=== PATIENT | male | born 1950 | race Caucasian/White ===

== ENCOUNTER 2023-12-13 08:06 | Inpatient (IN) ==
[2023-12-13 08:32] LABS: iSTAT Creatinine 0.8 mg/dl (0.6-1.3); iSTAT Hemoglobin 13.6 g/dl (14.0-18.0); iSTAT Ionized Calcium 1.16 mmol/l (1.12-1.32); iSTAT Potassium 3.1 mmol/L (3.3-5.0)
[2023-12-13 08:34] LABS: Basophils # (auto) 0.06 K/uL (0.00-0.20); Basophils % (auto) 0.5 %; Eosinophils # (auto) 0.17 K/uL (0.00-0.50); Eosinophils % (auto) 1.3 %; Hematocrit (blood only) 40.1 % (42.0-52.0); Hemoglobin 12.3 g/dl (14.0-18.0); Immature Granulocytes # (auto) 0.39 K/uL (0.01-0.20); Lymphocytes # (auto) 4.82 K/uL (1.20-3.40); Lymphocytes % (auto) 36.9 %; Mean Corpuscular Hemoglobin 32.3 pg (25.0-34.0); Mean Corpuscular Hgb Conc 30.7 g/dL (32.0-36.0); Mean Corpuscular Volume 105.2 fL (80.0-100.0); Mean Platelet Volume 9.5 fL (9.4-12.4); Monocytes # (auto) 0.97 K/uL (0.11-0.59); Monocytes % (auto) 7.4 %; Neutrophils # (auto) 6.67 K/uL (1.40-6.50); Neutrophils % (auto) 50.9 %; Platelet Count 230 K/uL (130-400); RDW Coefficient of Variation 13.6 % (11.5-14.5); RDW Standard Deviation 52.5 fL (36.4-46.3); Red Blood Count 3.81 M/uL (4.70-6.10); White Blood Count 13.08 K/ul (4.8-10.8)
[2023-12-13] MEDS ORDERED: STAT IV Infusion **Titration per Protocol STA ×2 (08:36→08:37)
--- NOTE | 2023-12-13 08:36 | Emergency Department Note ---
Impression & Plan Cardiac arrest, PEA (Pulseless electrical activity), Acute on chronic hypoxic respiratory failure, Interstitial lung disease, Chronic hypoxic respiratory failure ED Provider Note NAME: KAZ WILD AGE: 73 SEX: M : 1950 ARRIVES VIA: Ambulance INFORMANT: Patient ED PROVIDER(S): Carlos Alicea DO CHIEF COMPLAINT: cardiac arrest HPI: Patient is a 73-year-old male who presents to the ER for cardiac arrest. Some where around 0710 family heard a thud and they went into the room and he was unresponsive. Upon arrival of EMS he was found to be in PEA. He was given 2 of epi and eventually had ROSC. He was a little hypotensive and was given 40 mcg of epi following this by EMS. He was transported for about 20 minutes without any additional intervention as he remained stable. He was given IV fluids. Patient is a full code per EMS. ADDITIONAL HISTORY OBTAINED: Per HPI Chronic Medical/Social Conditions Affecting Care: Per HPI PAST MEDICAL HISTORY:See Below PAST SURGICAL HISTORY:See Below FAMILY HISTORY:See Below SOCIAL HISTORY:See Below HOME MEDICATIONS:See Below ALLERGIES:See Below VITALS:See Below PHYSICAL EXAMINATION: GENERAL: Lying in bed unresponsive with ET tube in place. Pupils are 4 mm and reactive. EYE EXAM: normal conjunctiva. OROPHARYNX: no exudate, no erythema, lips, buccal mucosa, and tongue normal and mucous membranes are moist NECK: supple, no nuchal rigidity, no adenopathy, non-tender LUNGS: Clear to auscultation. Normal chest wall mechanics HEART: no murmurs, S1 normal and S2 normal ABDOMEN: abdomen soft, non-tender, normo-active bowel sounds, no masses, no rebound or guarding. UPPER EXTREMITIES: upper extremities are grossly normal. LOWER EXTREMITIES: No pitting edema. NEURO EXAM: GCS 3 T MEDICAL DECISION MAKING: Patient is a 73-year-old male with a past medical history of interstitial lung disease and chronic respiratory failure on 2 to 4 L nasal cannula who presents to the ER following cardiac arrest. IV was established blood work is obtained. Upon presentation to the ER bedside ultrasound was performed by myself and showed cardiac contractility. IV was established blood work was obtained. Labs showed a mild leukocytosis of 13,000. Mild anemia. ABG with a pH of 7.1 and a CO2 elevated at nearly 80. Patient was intubated in the field. BMP with a hypokalemia at 3.2. Lactate was significantly elevated at 10. Troponin was elevated as well. LFTs and magnesium was unremarkable. Lipase was normal. Pro-Vikram was normal. Chest x-ray with chronic interstitial findings but was covered with IV fluids and IV antibiotics/cefepime. Central line was placed in the left groin by myself. Please see the report below/procedure note. Patient was placed on epinephrine. This was titrated up and down several times. He was also placed on a fentanyl drip. Discussed with the son notes that the patient is a full code at this time. Discussed with the hospitalist as well as Vincent Cohn from the yield improvement engineer service. Please see their notes for further evaluation management. Upon arrival systolic pressures were in the 70s and consequently patient was started on epinephrine and central line was placed. Case was also discussed with Dr. Peraza from the yield improvement engineer service and he agreed with admission to the hospitalist and echo. Consults/Care Managements Discussions: Per [facility] Triage Nursing notes reviewed. Limited review of prior medical records performed Vital Signs: reviewed and remarkable for hypotension Differential diagnosis: Cardiac ischemia, aortic dissection, pulmonary embolism, pneumothorax, pneumonia, pericarditis, myocarditis, esophageal rupture, GERD, cholecystitis, pancreatitis, musculoskeletal, as well as other pathologies. ER treatment provided: See below Diagnostics interpreted by me include EKG and cardiac monitoring as listed below: -Cardiac Monitoring: An order was placed for continuous cardiac monitoring. The monitor shows a rate of 80 with sinus rhythm. -ECG: Sinus rhythm rate 84 Normal axis Right bundle branch block ST depressions in the anterior lateral leads T wave inversions in the inferior leads QTc 465 -Laboratory studies:Interpreted by me as stated above in MDM and shown below. Imaging studies: Xrays: As interpreted by me: Portable AP upright 1 view of the chest shows ET tube about 3 and half centimeters above the rahel CTs show: CT of the head was negative for any acute bleed Procedures:PROCEDURE NOTE - Central Line Insertion - Ultrasound Guided PRIOR TO PROCEDURE: Consent: Discussion was not held with the patient concerning central line. The risks and benefits were not explained with possible risks to include bleeding, pain, pneumothorax, hemothorax, pulmonary contusion, pulmonary laceration, and infection. The was unable to consent and it was done emergently The patient was evaluated prior to the procedure. The patient was identified and the procedure verified as central line insertion. A Time Out was held and the following information confirmed. Verify Correct Patient: Yes Verify Correct Site: Yes Availability of Necessary Equipment: Yes PROCEDURE NOTE: Procedure: Central Line Inserting Clinician: Carlos Alicea DO. Guide-wire was removed, examined and is intact Complication/Corrective Action: None Estimated Blood Loss: 5 mL mls US guided line placement: Yes I have reviewed and educated the patient and or family regarding the benefits and risks of central line insertion, and I have reviewed the potential complications including infection -no CENTRAL LINE BUNDLE: Skin Prep: Chlorhexidine/alcohol Barriers Used: Mask: yes Sterile gown: yes Large sterile drape: yes Cap: yes Sterile gloves: yes Insertion Status: new site Indications - include all that apply: Cardiac arrest, hypotension on pressors Placement Conditions: Emergently Site: Femoral Side: L Number of lumen(s): 3 Length of catheter inserted into patient: 20 centimeters Anesthesia: local Number of Needle Passes: 2 Radiological confirmation: Yes I performed the procedure. Critical Care: I have personally spent 125 minutes of critical care time in the direct management of this patient. This includes bedside care, interpretation of diagnostic studies, and testing, discussion with consultants, patient, and family members, and other required patient management activities. This 125 minutes is in excess of all separately billable procedures. Past Med/Surg History Social History Smoking Status: Unknown if ever smoked Communication Ability: Unable Communication Ability Comment: intubated upon arrival Beliefs That Will Affect Care: None Current Living Situation: Alone Feels Safe at Home: Declines to Answer Allergies Allergies Allergy/AdvReac Type Severity Reaction Status Date / Time No Known Allergies Allergy Unverified 12/13/23 12:46 Results & Data (ED) Vital Signs Vital Signs - 24 hr 12/13/23 08:17 12/13/23 08:21 12/13/23 08:22 Temperature Pulse Rate 82 79 80 Pulse Rate from SpO2 Sensor Respiratory Rate 16 20 Blood Pressure 70/45 L Blood Pressure Mean 53 Pulse Oximetry 100 100 Oxygen Delivery Method Room Air Fraction of Inspired Oxygen 100 Sepsis Recent Fever Within 48 Hours No Sepsis New/Unexplained Change in Mental Status Yes Sepsis Action Taken by Nursing Physician Notified End-Tidal CO2 52 12/13/23 08:30 12/13/23 08:38 12/13/23 08:40 Temperature 31.0 C L Pulse Rate 83 Pulse Rate from SpO2 Sensor 82 Respiratory Rate 22 Blood Pressure 142/94 H Blood Pressure Mean 113 Pulse Oximetry 99 Oxygen Delivery Method Fraction of Inspired Oxygen 50 Sepsis Recent Fever Within 48 Hours Sepsis New/Unexplained Change in Mental Status Sepsis Action Taken by Nursing End-Tidal CO2 47 12/13/23 08:40 12/13/23 08:42 12/13/23 08:42 Temperature 31.6 C L Pulse Rate 84 Pulse Rate from SpO2 Sensor Respiratory Rate 25 H Blood Pressure 97/65 L 115/84 Blood Pressure Mean 72 90 Pulse Oximetry Oxygen Delivery Method Fraction of Inspired Oxygen Sepsis Recent Fever Within 48 Hours Sepsis New/Unexplained Change in Mental Status Sepsis Action Taken by Nursing End-Tidal CO2 42 12/13/23 08:44 12/13/23 08:44 12/13/23 08:45 Temperature 31.9 C L 32.1 C L Pulse Rate 80 77 Pulse Rate from SpO2 Sensor 81 78 Respiratory Rate 21 23 Blood Pressure 112/81 Blood Pressure Mean 96 Pulse Oximetry 97 100 Oxygen Delivery Method Fraction of Inspired Oxygen Sepsis Recent Fever Within 48 Hours Sepsis New/Unexplained Change in Mental Status Sepsis Action Taken by Nursing End-Tidal CO2 41 44 12/13/23 08:46 12/13/23 08:46 12/13/23 08:48 Temperature 32.2 C L Pulse Rate 77 Pulse Rate from SpO2 Sensor 76 Respiratory Rate 27 H Blood Pressure 125/90 130/83 Blood Pressure Mean 96 102 Pulse Oximetry 100 Oxygen Delivery Method Fraction of Inspired Oxygen Sepsis Recent Fever Within 48 Hours Sepsis New/Unexplained Change in Mental Status Sepsis Action Taken by Nursing End-Tidal CO2 42 12/13/23 08:48 12/13/23 08:50 12/13/23 08:50 Temperature 32.5 C L 32.6 C L Pulse Rate 78 75 Pulse Rate from SpO2 Sensor 75 71 Respiratory Rate 23 24 Blood Pressure 128/81 Blood Pressure Mean 89 Pulse Oximetry 100 100 Oxygen Delivery Method Fraction of Inspired Oxygen Sepsis Recent Fever Within 48 Hours Sepsis New/Unexplained Change in Mental Status Sepsis Action Taken by Nursing End-Tidal CO2 44 43 12/13/23 08:52 12/13/23 08:52 12/13/23 08:54 Temperature 32.7 C L Pulse Rate 75 Pulse Rate from SpO2 Sensor 73 Respiratory Rate 28 H Blood Pressure 132/86 117/75 Blood Pressure Mean 108 84 Pulse Oximetry 99 Oxygen Delivery Method Fraction of Inspired Oxygen Sepsis Recent Fever Within 48 Hours Sepsis New/Unexplained Change in Mental Status Sepsis Action Taken by Nursing End-Tidal CO2 40 12/13/23 08:54 12/13/23 08:55 12/13/23 08:56 Temperature 32.8 C L 32.9 C L Pulse Rate 76 76 Pulse Rate from SpO2 Sensor 76 72 Respiratory Rate 26 H 25 H Blood Pressure 127/78 Blood Pressure Mean 98 Pulse Oximetry 99 99 Oxygen Delivery Method Fraction of Inspired Oxygen Sepsis Recent Fever Within 48 Hours Sepsis New/Unexplained Change in Mental Status Sepsis Action Taken by Nursing End-Tidal CO2 40 39 12/13/23 08:56 12/13/23 08:58 12/13/23 08:58 Temperature 32.9 C L 32.9 C L Pulse Rate 74 73 Pulse Rate from SpO2 Sensor 72 75 Respiratory Rate 28 H 28 H Blood Pressure 118/86 Blood Pressure Mean 98 Pulse Oximetry 99 98 Oxygen Delivery Method Fraction of Inspired Oxygen Sepsis Recent Fever Within 48 Hours Sepsis New/Unexplained Change in Mental Status Sepsis Action Taken by Nursing End-Tidal CO2 41 39 12/13/23 09:00 12/13/23 09:00 12/13/23 09:02 Temperature 33.0 C L 33.0 C L Pulse Rate 76 74 Pulse Rate from SpO2 Sensor 72 67 Respiratory Rate 30 H 27 H Blood Pressure 119/77 Blood Pressure Mean 97 Pulse Oximetry 100 99 Oxygen Delivery Method Fraction of Inspired Oxygen Sepsis Recent Fever Within 48 Hours Sepsis New/Unexplained Change in Mental Status Sepsis Action Taken by Nursing End-Tidal CO2 39 40 12/13/23 09:02 12/13/23 09:04 12/13/23 09:04 Temperature 33.0 C L Pulse Rate 74 Pulse Rate from SpO2 Sensor 71 Respiratory Rate 26 H Blood Pressure 112/75 120/77 Blood Pressure Mean 85 80 Pulse Oximetry 99 Oxygen Delivery Method Fraction of Inspired Oxygen Sepsis Recent Fever Within 48 Hours Sepsis New/Unexplained Change in Mental Status Sepsis Action Taken by Nursing End-Tidal CO2 36 12/13/23 09:05 12/13/23 09:06 12/13/23 09:06 Temperature 33.0 C L 33.0 C L Pulse Rate 72 70 Pulse Rate from SpO2 Sensor 70 71 Respiratory Rate 15 26 H Blood Pressure 106/74 Blood Pressure Mean 88 Pulse Oximetry 100 99 Oxygen Delivery Method Fraction of Inspired Oxygen Sepsis Recent Fever Within 48 Hours Sepsis New/Unexplained Change in Mental Status Sepsis Action Taken by Nursing End-Tidal CO2 39 38 12/13/23 09:08 12/13/23 09:08 12/13/23 09:10 Temperature 32.9 C L Pulse Rate 74 Pulse Rate from SpO2 Sensor 75 Respiratory Rate 23 Blood Pressure 107/75 104/75 Blood Pressure Mean 79 88 Pulse Oximetry 97 Oxygen Delivery Method Fraction of Inspired Oxygen Sepsis Recent Fever Within 48 Hours Sepsis New/Unexplained Change in Mental Status Sepsis Action Taken by Nursing End-Tidal CO2 36 12/13/23 09:10 12/13/23 09:12 12/13/23 09:12 Temperature 32.9 C L 32.9 C L Pulse Rate 72 73 Pulse Rate from SpO2 Sensor 72 71 Respiratory Rate 20 22 Blood Pressure 104/70 Blood Pressure Mean 76 Pulse Oximetry 98 98 Oxygen Delivery Method Fraction of Inspired Oxygen Sepsis Recent Fever Within 48 Hours Sepsis New/Unexplained Change in Mental Status Sepsis Action Taken by Nursing End-Tidal CO2 38 36 12/13/23 09:14 12/13/23 09:14 12/13/23 09:15 Temperature 32.9 C L 32.9 C L Pulse Rate 79 74 Pulse Rate from SpO2 Sensor 71 69 Respiratory Rate 21 22 Blood Pressure 110/72 Blood Pressure Mean 80 Pulse Oximetry 95 92 Oxygen Delivery Method Fraction of Inspired Oxygen Sepsis Recent Fever Within 48 Hours Sepsis New/Unexplained Change in Mental Status Sepsis Action Taken by Nursing End-Tidal CO2 46 38 12/13/23 09:16 12/13/23 09:16 12/13/23 09:18 Temperature 32.8 C L 32.8 C L Pulse Rate 71 73 Pulse Rate from SpO2 Sensor 74 Respiratory Rate 22 22 Blood Pressure 95/75 L Blood Pressure Mean 84 Pulse Oximetry 100 Oxygen Delivery Method Fraction of Inspired Oxygen Sepsis Recent Fever Within 48 Hours Sepsis New/Unexplained Change in Mental Status Sepsis Action Taken by Nursing End-Tidal CO2 39 40 12/13/23 09:18 12/13/23 09:20 12/13/23 09:25 Temperature 32.8 C L 32.7 C L Pulse Rate 71 78 Pulse Rate from SpO2 Sensor 75 Respiratory Rate 21 22 Blood Pressure 107/67 Blood Pressure Mean 72 Pulse Oximetry 87 L 99 Oxygen Delivery Method Fraction of Inspired Oxygen Sepsis Recent Fever Within 48 Hours Sepsis New/Unexplained Change in Mental Status Sepsis Action Taken by Nursing End-Tidal CO2 41 36 12/13/23 09:30 12/13/23 09:35 12/13/23 09:40 Temperature 32.6 C L 32.5 C L 32.3 C L Pulse Rate 72 72 70 Pulse Rate from SpO2 Sensor 76 70 69 Respiratory Rate 20 20 20 Blood Pressure Blood Pressure Mean Pulse Oximetry 98 97 97 Oxygen Delivery Method Fraction of Inspired Oxygen Sepsis Recent Fever Within 48 Hours Sepsis New/Unexplained Change in Mental Status Sepsis Action Taken by Nursing End-Tidal CO2 41 41 43 Laboratory Data 12/13/23 12:34 12/13/23 08:20 Lab Results 12/13/23 12/13/23 Range/Units 08:19 08:20 WBC 13.08 H (4.8-10.8) K/ul RBC 3.81 L (4.70-6.10) M/uL Hgb 12.3 L (14.0-18.0) g/dl POC Hgb 13.6 L (14.0-18.0) g/dl Hct 40.1 L (42.0-52.0) % POC Hct 40 L (42-52) % MCV 105.2 H (80.0-100.0) fL MCH 32.3 (25.0-34.0) pg MCHC 30.7 L (32.0-36.0) g/dL RDW Std Deviation 52.5 H (36.4-46.3) fL RDW Coeff of Jeny 13.6 (11.5-14.5) % Plt Count 230 (130-400) K/uL MPV 9.5 (9.4-12.4) fL Immature Gran % (Auto) 3.0 % Neut % (Auto) 50.9 % Lymph % (Auto) 36.9 % Cowley % (Auto) 7.4 % Eos % (Auto) 1.3 % Baso % (Auto) 0.5 % Neut # (Auto) 6.67 H (1.40-6.50) K/uL Lymph # (Auto) 4.82 H (1.20-3.40) K/uL Cowley # (Auto) 0.97 H (0.11-0.59) K/uL Eos # (Auto) 0.17 (0.00-0.50) K/uL Baso # (Auto) 0.06 (0.00-0.20) K/uL Immature Gran # (Auto) 0.39 H (0.01-0.20) K/uL POC Sodium 135 (135-144) mmol/L Sodium 136 (136-145) mmol/L POC Potassium 3.1 L (3.3-5.0) mmol/L Potassium 3.2 L (3.5-5.1) mmol/L POC Chloride 88 L (101-112) mmol/L Chloride 91 L (98-107) mmol/L Carbon Dioxide 31 (21-32) mmol/L POC Total CO2 33 H (24-31) mmol/L Anion Gap 14 H (3-11) POC Anion Gap 17.0 (16-25) mmol/L POC BUN 14 (7-18) mg/dl BUN 15 (6-23) mg/dl Creatinine 0.84 (0.6-1.4) mg/dl POC Creatinine 0.8 (0.6-1.3) mg/dl Est Cr Clr Drug Dosing 59.6 ml/min Est GFR ( Amer) 101.4 ml/min Est GFR (Non-Af Amer) 87.5 ml/min BUN/Creatinine Ratio 17.9 (10-20) Glucose 163 H (70-99(Fasting)) mg/dl POC Glucose (other) 161 H (70-99) mg/dl Lactate 10.9 H* (0.4-2.0) mmol/L Calcium 9.7 (8.6-10.3) mg/dl POC Ioniz Calcium Iker 1.16 (1.12-1.32) mmol/l Magnesium 2.4 (1.7-2.4) mg/dl Total Bilirubin 0.5 (0.2-1.0) mg/dl AST 92 H (13-39) U/L ALT 42 (7-52) U/L Alkaline Phosphatase 79 (34-104) U/L Troponin I High Sens 40.5 H (0-20) pg/ml Total Protein 7.0 (6.0-8.3) gm/dl Albumin 3.6 (3.4-5.0) gm/dl Globulin 3.4 (2.5-4.0) gm/dl Albumin/Globulin Ratio 1.1 (0.9-2) Lipase 67 (11-82) U/L Procalcitonin < 0.05 (0-0.5) ng/ml Administered Medications Epinephrine HCl () 4 mg in 254 mls @ 4.039 mls/hr IV .Q24H RAPHAEL; Protocol Stop: 01/12/24 08:44 Last Titration: 12/13/23 11:57 Dose: 0.1 mcg/kg/min, 20.2 mls/hr Documented By: Titration: 12/13/23 11:26 Dose: 0.2 mcg/kg/min, 40.4 mls/hr Documented By: KAE Co-signed By: JS Admin: 12/13/23 08:43 Dose: 0.03 mcg/kg/min, 6.1 mls/hr Documented By: VIAK Co-signed By: KALEY Fentanyl Citrate (Fentanyl Citrate) 2,500 mcg in 250 mls @ 5 mls/hr IV .Q50H RAPHAEL; Protocol Stop: 12/27/23 08:44 Last Titration: 12/13/23 11:58 Dose: 50 mcg/hr, 5 mls/hr Documented By: KAE Co-signed By: JS Titration: 12/13/23 11:40 Dose: 25 mcg/hr, 2.5 mls/hr Documented By: KAE Co-signed By: JS Titration: 12/13/23 11:26 Dose: 0 mcg/hr, 0 mls/hr Documented By: KAE Co-signed By: JS Titration: 12/13/23 09:15 Dose: 50 mcg/hr, 5 mls/hr Documented By: VIKA Co-signed By: HS Admin: 12/13/23 08:45 Dose: 25 mcg/hr, 2.5 mls/hr Documented By: MWLance Co-signed By: KALEY Parenteral Electrolytes (Plasma-Lyte A Ph 7.4) 1,000 mls @ 100 mls/hr IV .Q10H RAPHALE Stop: 01/12/24 11:59 Last Admin: 12/13/23 12:48 Dose: 100 mls/hr Documented By: JS Discontinued Medications Fentanyl Citrate (Fentanyl Citrate 2,500 Mcg/250 Ml Bag) Confirm Administered Dose 2,500 mcg IV .STK-MED ONE Stop: 12/13/23 08:29 Last Admin: 12/13/23 08:49 Dose: Not Given Documented By: VIKA Sodium Chloride (Nss) 1,000 mls @ 999 mls/hr IV .Q1H1M ONE Stop: 12/13/23 09:37 Last Infusion: 12/13/23 11:27 Dose: Infused Documented By: Admin: 12/13/23 08:44 Dose: 999 mls/hr Documented By: VIKA Cefepime HCl (Maxipime) 2,000 mg in 20 mls @ 5 mls/min IV NOW STA; Protocol Stop: 12/13/23 08:52 Last Admin: 12/13/23 09:18 Dose: 5 mls/min Documented By: VIKA Potassium Chloride (K Clifton / Wtr) 10 meq in 100 mls @ 100 mls/hr IV Q1H RAPHAEL Stop: 12/13/23 10:59 Last Infusion: 12/13/23 12:21 Dose: Infused Documented By: Admin: 12/13/23 11:25 Dose: 100 mls/hr Documented By: Infusion: 12/13/23 10:18 Dose: Infused Documented By: Admin: 12/13/23 09:18 Dose: 100 mls/hr Documented By: VIKA Influenza Virus Vaccine (Influenza Vaccine High-Dose (Hd-Iiv4) Pf 65+ 0.7ml Syr) 0.7 ml IM .ONCE ONE Stop: 12/13/23 12:42 Last Admin: 12/13/23 13:09 Dose: Not Given Documented By: JS Miscellaneous Information (Patient's Allergy Info Needs Entered) 1 each N/A NOW STA Stop: 12/13/23 12:20 Last Admin: 12/13/23 12:46 Dose: 1 each Documented By: JS Pneumococcal 20-Valent Conj Vacc (Pneumococcal Vaccine (Pcv20) 20-Judy Conj-Dip Crm/Pf 0.5 Ml Syr) 0.5 ml IM .ONCE ONE Stop: 12/13/23 12:42 Last Admin: 12/13/23 13:09 Dose: Not Given Documented By: JS Imaging Data Radiologist's Impression: Chest X-Ray 12/13/23 08:04 XR chest 1V portable HISTORY: Atypical chest pain. COMPARISON: None. FINDINGS: The endotracheal tube terminates 4 cm from the rahel. No pneumothorax. No pleural effusions. The heart is normal in size. There is diffuse interstitial thickening with patchy scattered hazy airspace opacities within the lungs. The esophagus is mildly distended with gas. There is also gaseous distention of the stomach and visualized loops of bowel within the upper abdomen. IMPRESSION: 1. The esophagus is mildly distended with gas and there is gaseous distention of the stomach and visualized loops of bowel within the upper abdomen. The endotracheal tube is likely within the trachea. However, clinical correlation recommended to exclude the possibility of an esophageal intubation. 2. Diffuse interstitial thickening with patchy bilateral airspace opacities. This could represent chronic interstitial change. A superimposed pneumonitis would be difficult to exclude given the lack of prior studies. ACT 112: Negative or not required by law. Electronically signed by: Po Wilkerson M.D. 12/13/2023 8:[address] 12/13/23 08:[address] DOSE: HISTORY: syncope TECHNIQUE: Multiaxial CT images of the head were performed without the use of intravenous contrast. Automated exposure control was utilized for this study. A dose lowering technique was utilized adhering to the principles of ALARA. Comparison: None. Findings: The paranasal sinuses and mastoid air cells are clear. The calvarium and skull base are intact. The ventricles and sulci are within normal limits. There is no mass, hematoma, midline shift, acute infarct. Patchy periarticular white matter hypodensity is nonspecific but favors mild microvascular ischemic change given the patient's age. Impression: No acute infarct or intracranial hemorrhage. ACT 112: Negative or not required by law. Electronically signed by: Po Wilkerson M.D. 12/13/2023 10:58 AM KUB X-Ray 12/13/23 08:56 KUB HISTORY: Nasogastric tube placement. COMPARISON: None. FINDINGS: The nasogastric tube terminates at the gastric cardia with the fenestrated line at the distal esophagus. This should be advanced by approximately 5 to 10 cm. Gaseous distention of the stomach and bowel within the right upper quadrant is partially visualized on this study. There is interstitial thickening again noted at the lung bases. No renal calculi. No ureteral calculi. Abnormal appearance of the bowel within the right midabdomen is likely due to the distended bowel loops. Pneumoperitoneum is considered less likely . IMPRESSION: 1. Abnormal appearance of the bowel within the right midabdomen is likely due to the distended bowel loops. Pneumoperitoneum is considered less likely. Of note, there is no evidence for pneumoperitoneum on the same day chest CT.. 2. Nasogastric tube terminates at the gastric cardia with the fenestrated line at the distal esophagus. This should be advanced by approximately 5 to 10 cm. 3. Gaseous distention of the stomach and bowel right upper quadrant which is partially visualized on this study. ACT 112: Negative or not required by law. Electronically signed by: Po Wilkerson M.D. 12/13/2023 10:[address] 12/13/23 09:06 CT chest diagnostic wo con CT DOSE: 767.27 mGy.cm CLINICAL HISTORY: 73 years-old Male with arrest, ?h/o pulmonary fibrosis. Acute respiratory failure in a patient with possible pulmonary fibrosis TECHNIQUE: Multiaxial CT images of the chest were performed without contrast. A dose lowering technique was utilized adhering to the principles of ALARA. COMPARISON: Chest radiograph of same day FINDINGS: Unremarkable thyroid. Borderline enlarged mediastinal lymph nodes include a 2.2 x 1.2 cm subcarinal lymph node and paratracheal lymph nodes measuring up to 10 mm in short axis. The heart is normal in size. No large pericardial effusion. Extensive coronary artery calcifications. Atherosclerosis of the thoracic aorta without aneurysm. Endotracheal is present within the trachea, 3.4 cm superior to the rahel. Moderate pneumomediastinum. No pneumothorax or large pleural effusion. Pulmonary fibrosis with multilobar distribution of traction bronchiectasis, subpleural reticulation with intermixed groundglass opacities. There is bibasilar honeycombing. A suture line within the superior segment right lower lobe is suggestive of a prior wedge resection. No lobar space consolidation typical for pneumonia. There is intralobular septal thickening. Calcified granuloma in the lateral basal segment left lower lobe. Tracheobronchial secretions. Gaseous distention of the stomach. No esophageal wall thickening however the aforementioned pneumomediastinum does track along the distal esophagus. There is no free air. Mildly distended gallbladder with borderline wall thickening. Pancreatic parenchymal calcifications suggestive of chronic pancreatitis. Unremarkable soft tissues. Anteromedial rib cortical angulation/disruption involves the right second through sixth ribs and the left second through sixth ribs. The vertebral bodies appear intact. IMPRESSION: 1. Satisfactory positioning of the endotracheal tube. Tracheobronchial secretions are noted along with moderate pneumomediastinum. 2. Chronic interstitial lung disease with fibrosis, diffuse bronchiectasis with bibasilar predominant honeycombing suggestive of UIP. 3. Mild mediastinal and hilar lymphadenopathy may be related to the chronic interstitial lung disease. 4. Bilateral anterior second through sixth rib fractures appear to be acute or subacute without significant displacement. No pneumothorax. 5. Equivocal wall thickening of the gallbladder could be correlated with ultrasound. 6. No pleural effusion or airspace consolidation typical for pneumonia. ACT 112: Negative or not required by law. Electronically signed by: Chad Victoria M.D. 12/13/2023 11:05 AM Discharge Plan Visit Data Chief Complaint: Cardiac Arrest/CPR ED Provider: Carlos Alicea Discharge Problem: Cardiac arrest, PEA (Pulseless electrical activity), Acute on chronic hypoxic respiratory failure, Interstitial lung disease, Chronic hypoxic respiratory failure Patient Disposition: Admitted As Inpatient Discharge Instructions Interventions: ED Discharge Assessment Last Done: 12/13/23 10:45
[2023-12-13] MEDS ORDERED: fentaNYL citrate PF 100 MCG/2 ML VIAL IV PRN (08:37)
[2023-12-13] MEDS: EPINEPHrine/NSS 4 MG/254 ML BAG IV SCH (08:43)
[2023-12-13] MEDS: SODIUM CHLORIDE 0.9% 1,000 ML IV ONE (08:44)
[2023-12-13] MEDS: fentaNYL citrate 2,500 MCG/250 ML BAG IV SCH (08:45)
[2023-12-13] MEDS: fentaNYL citrate 2,500 MCG/250 ML BAG IV ONE (08:49)
[2023-12-13 08:57] LABS: Albumin Globulin Ratio 1.1 (0.9-2); Albumin Level 3.6 gm/dl (3.4-5.0); BUN Creatinine Ratio 17.9 (10-20); Bilirubin,Total 0.5 mg/dl (0.2-1.0); Calcium 9.7 mg/dl (8.6-10.3); Creatinine Clr Calc Pharmacy 59.6 ml/min; Est GFR (African American) 101.4 ml/min; Est GFR (Non-African American) 87.5 ml/min; Globulin 3.4 gm/dl (2.5-4.0); Potassium 3.2 mmol/L (3.5-5.1)
--- NOTE | 2023-12-13 09:00 | XRay Report ---
XR chest 1V portable HISTORY: Atypical chest pain. COMPARISON: None. FINDINGS: The endotracheal tube terminates 4 cm from the rahel. No pneumothorax. No pleural effusion s. The heart is normal in size. There is diffuse interstitial thickening with patchy scattered hazy a irspace opacities within the lungs. The esophagus is mildly distended with gas. There is also gaseous distention of the stomach and visualized loops of bowel within the upper abdomen. IMPRESSION: 1. The esophagus is mildly distended with gas and there is gaseous distention of the stomach and visu alized loops of bowel within the upper abdomen. The endotracheal tube is likely within the trachea. H owever, clinical correlation recommended to exclude the possibility of an esophageal intubation. 2. Diffuse interstitial thickening with patchy bilateral airspace opacities. This could represent chr onic interstitial change. A superimposed pneumonitis would be difficult to exclude given the lack of prior studies. ACT 112: Negative or not required by law. Electronically signed by: Po Wilkerson M.D. 12/13/2023 8:58 AM
[2023-12-13 09:01] LABS: Troponin I High Sensitivity 40.5 pg/ml (0-20)
[2023-12-13] MEDS: CEFEPIME 2,000 MG/20 ML VIAL IV STA (09:18)
[2023-12-13] MEDS: POTASSIUM CHLORIDE / WTR 10 MEQ/100 ML PLCT IV SCH (09:18)
[2023-12-13 09:47] LABS: Magnesium 2.4 mg/dl (1.7-2.4)
--- NOTE | 2023-12-13 09:48 | History & Physical Report ---
Date of Service December 13, 2023 Assessment & Plan (1) Cardiac arrest: Plan: Cardiac arrest in a 73 yo male with fixed pupils, lack of gag reflex, not responsive to painful stimuli. Patient with history of pulmonary fibrosis with baseline hypoxemia. Anoxic brain injury appears very likely with above signs. will obtain neuro imaging vent per ICU team. (2) Acute on chronic hypoxic respiratory failure: Plan: as above (3) Severe protein-calorie malnutrition: Plan: BMI is 15. History of Present Illness Chief Complaint: pulseless. Primary Care Provider: NO PCP 73 yo male with a history of interstitial pulmonary disease, chronic respiratory failure, and chronic diarrhea presents to the ED after suffering a cardiac arrest. The patient is currently intubated. The chart review shows that the patient was at his baseline in regards to his health when he had diarrhea with incontinence. The son heard a thud and found the patient unresponsive on the floor. EMS was called. The patient was found to be in PEA, and was intubated on the field. Allergies Allergy/AdvReac Type Severity Reaction Status Date / Time No Known Allergies Allergy Unverified 12/13/23 12:46 Past Med/Surg History Social History Smoking Status: Unknown if ever smoked Communication Ability: Unable Communication Ability Comment: intubated upon arrival Beliefs That Will Affect Care: Spiritual Current Living Situation: Alone Feels Safe at Home: Declines to Answer Assistive Devices: None Review of Systems Review of Systems: Unobtainable due to cognitive status Physical Exam Physical Exam: GENERAL - A frail male who appears stated age is intubated and sedated. SKIN - Without rashes HEENT - NC/AT. Pupils fixed and equal bilaterally. Normal upon external inspection. no trauma, or abrasions LUNGS - Coarse breath sounds bilaterally. CARDIAC - RRR with S1/S2. ABDOMEN - Abdominal contour scaphoid without pulsations or visible masses. EXTREMITIES - Frail appearing. Unable to assess strength. NEUROLOGIC - Pupils fixed and equal bilaterally. No response to painful stimuli. Minimal gag reflex. Occasional myoclonic jerking movements. Results & Data Results & Data Vital Signs (Past 12 Hours) Vital Signs Temp Pulse Resp BP Pulse Ox O2 Del Method FiO2 12/13/23 09:40 32.3 C L 70 20 97 12/13/23 09:35 32.5 C L 72 20 97 12/13/23 09:30 32.6 C L 72 20 98 12/13/23 09:25 32.7 C L 78 22 99 12/13/23 09:20 32.8 C L 71 21 87 L 12/13/23 09:18 107/67 12/13/23 09:18 32.8 C L 73 22 12/13/23 09:16 95/75 L 12/13/23 09:16 32.8 C L 71 22 100 12/13/23 09:15 32.9 C L 74 22 92 12/13/23 09:14 110/72 12/13/23 09:14 32.9 C L 79 21 95 12/13/23 09:12 104/70 12/13/23 09:12 32.9 C L 73 22 98 12/13/23 09:10 32.9 C L 72 20 98 12/13/23 09:10 104/75 12/13/23 09:08 107/75 12/13/23 09:08 32.9 C L 74 23 97 12/13/23 09:06 33.0 C L 70 26 H 99 12/13/23 09:06 106/74 12/13/23 09:05 33.0 C L 72 15 100 12/13/23 09:04 33.0 C L 74 26 H 99 12/13/23 09:04 120/77 12/13/23 09:02 112/75 12/13/23 09:02 33.0 C L 74 27 H 99 12/13/23 09:00 119/77 12/13/23 09:00 33.0 C L 76 30 H 100 12/13/23 08:58 118/86 12/13/23 08:58 32.9 C L 73 28 H 98 12/13/23 08:56 32.9 C L 74 28 H 99 12/13/23 08:56 127/78 12/13/23 08:55 32.9 C L 76 25 H 99 12/13/23 08:54 32.8 C L 76 26 H 99 12/13/23 08:54 117/75 12/13/23 08:52 132/86 12/13/23 08:52 32.7 C L 75 28 H 99 12/13/23 08:50 32.6 C L 75 24 100 12/13/23 08:50 128/81 12/13/23 08:48 32.5 C L 78 23 100 12/13/23 08:48 130/83 12/13/23 08:46 32.2 C L 77 27 H 100 12/13/23 08:46 125/90 12/13/23 08:45 32.1 C L 77 23 100 12/13/23 08:44 31.9 C L 80 21 97 12/13/23 08:44 112/81 12/13/23 08:42 31.6 C L 84 25 H 12/13/23 08:42 115/84 12/13/23 08:40 97/65 L 12/13/23 08:40 31.0 C L 83 22 99 12/13/23 08:38 142/94 H 12/13/23 08:30 50 12/13/23 08:22 80 20 100 100 12/13/23 08:21 79 16 70/45 L 100 Room Air 12/13/23 08:17 82 Code Status & VTE Plan VTE Prophylaxis Plan VTE Prophylaxis will be ordered: Yes PG Care Time/CCT Total # of Minutes Spent Total Time Spent with Patient: Total time spent is greater than 50% in coordination of care (as documented) at patient's floor/unit and/or counseling patient: Coding Level of Care Code 17831 INT INP/OBS CARE 3/75MIN Diagnoses Cardiac arrest I46.9 Acute on chronic hypoxic respiratory failure J96.21 Severe protein-calorie malnutrition E43
--- NOTE | 2023-12-13 10:15 | Critical Care Consultation ---
Date of Consultation December 13, 2023 Assessment & Plan (1) Cardiac arrest: (2) PEA (Pulseless electrical activity): (3) Acute on chronic hypoxic respiratory failure: (4) Interstitial lung disease: (5) Chronic hypoxic respiratory failure: (6) Severe protein-calorie malnutrition: (7) Diarrhea: Plan Reason Critically Ill: 73-year-old male presenting after outside hospital cardiac arrest. Patient with initial PEA rhythm noted upon arrival of EMS. NEURO - * CAM ICU: Unable to assess. * Status post PEA Arrest: * Patient is status post PEA arrest with downtime approximately 8 to 15 minutes with return of spontaneous circulation. Unfortunately, patient is with baseline hypoxemia in the setting of pulmonary fibrosis. He utilizes 3 L nasal cannula at all time. When the patient was found by his son, he was without oxygen in place. This makes anoxic injury and severity of injury much greater on the differential. Patient is not responding to painful stimuli. Minimal gag reflex. He is with myoclonic jerking already. * Will obtain CT of the head/brain to evaluate for injury suggestive of anoxic injury. * May benefit from MRI once stabilized to evaluate degree of anoxia. * Currently requiring fentanyl per ED initial evaluation. * Consideration for midazolam if he is to have worsening myoclonic jerking. * Close monitoring for development of seizure activity in the likely anoxic patient. * Would benefit from early EEG evaluation. * Continue to monitor mental status/neurostatus closely in the first 24-48 hours. CARDIAC/VASCULAR - * Outside hospital PEA Arrest with ROSC: * Patient found down by son. Resuscitation efforts were initiated by EMS upon arrival. The patient was found to be in PEA. He received 2 rounds of epinephrine and high-quality CPR. He was intubated in the field. Return of spontaneous circulation outside the hospital. Downtime estimated between 8 and 15 minutes per conversation with parties involved. * Patient currently requiring vasopressor support in the form of epinephrine. * Will continue with postarrest protocol. * Patient already hypothermic upon arrival. Would not initiate hypothermia protocol as this is likely representing a respiratory arrest in a patient with chronic hypoxemia. The patient would benefit from normothermia moving forward. * Case had been reviewed with interventional is prior to arrival in the ICU which did not not feel as though intervention was necessary at this time. * Will continue to monitor for any dysrhythmia or rhythm changes in the critically ill patient. * Monitor on telemetry. RESPIRATORY - * Acute on chronic hypoxic respiratory failure: * Status post PEA arrest. * Patient's story is concerning for respiratory arrest resulting in cardiac arrest secondary to his baseline hypoxia and patient being found without oxygen in place. Review of his chest x-ray shows infiltrative findings consistent with interstitial lung changes. * Will order CT chest to evaluate the extent of documented interstitial lung disease as we have no records at our institution. * Will need to reach out to the [facility] for their records regarding his current treatment. * Fortunately, I am concerned given the patient's baseline pulmonary status and arrest that the patient's condition may represent nonrecoverable scenario. * Patient presenting with respiratory acidosis. Will assess with ABGs and make ventilator changes as needed. GI/NUTRITION - * Isolated elevation of AST. * Will have conversation with the son regarding alcohol use? * Chronic diarrhea: * Patient with reported chronic diarrheal illness. * Prophylaxis: Famotidine RENAL/LYTES - * Hypokalemia: * Possibly secondary to GI losses with reported history of ongoing diarrheal issues. * Replace potassium to keep >4 in a patient with recent arrest at risk for dysrhythmia. * IVF: Normosol R @ 100mL/hr - * Umanzor in place - Strict I&Os. ENDO - * Unknown h/o DM or Thyroid Dz * BSGs per unit protocol. ISS --> gtt per unit policy. HEME - * Stable H&H ID - * Less likely infectious cause in a patient who had been without issues until this AM per conversation with son. * WBC elevation likely 2/2 stress response. * Lactate >10 in the setting of hypoperfusion - trending down now. * PCT within normal limits. * Received Cefepime in the ED. * Uncertain the utility of antibiotics otherwise. LINES/IV ACCESS - * PIVs x2 * ETT * LEFT Groin CVL * Umanzor DVT PROPHYLAXIS - * Heparin * SCDs CODE STATUS - * I had an extensive conversation with the patient's son in the waiting area of the part of the emergency department. He reports that his father had been doing well up until this morning. We did review goals of care and he reports that over the last few months he had been having discussions about end-of-life wishes, but had not done anything definitively. He feels as though his father would have wanted to undergo everything up to and including his current treatment plan. I did explain to him that in the event that his heart were to stop beating again, that this is likely a nonsurvivable state and certainly his baseline chronic respiratory failure, home oxygen requirement, and interstitial lung disease would only make survivability worse and clinical outcome poor. He acknowledges this and is uncertain if he would wish to proceed with more aggressive measures at this time. We will review CODE STATUS moving forward. I have personally spent 80 minutes of critical care time in the direct management of this patient. This is a life/limb threatening event. This includes time spent evaluating patient, direct bedside care, chart review, placing orders, interpretation of diagnostic studies, discussion with consultants, patient, and family members, as well as other required patient management activities. This time is exclusive of all separately billable procedures, and teaching time and separate from and in addition to any other critical care service time. Thank you for allowing us to participate in the care of this patient. Please refer to my attending physician's documentation for any further recommendations. Supervising Physician Co-Signing Physician Notes Patient seen and examined. EMR reviewed. Discussed with critical care RONNY as well as with the son. Agree with assessment plan as noted by the critical care RONNY. The patient has severe baseline fibrotic lung disease. [facility] with [facility] however radiographically this appears to be advanced and appears the patient was on pirfenidone in the outpatient setting. His PEA arrest may have been precipitated by lack of oxygen but regardless his downtime was significant and there is a significant probability of some degree of anoxic brain injury. Will continue to reassess over the next 12 to 24 hours. The son is aware that should the patient clinically deteriorate this would portend a poor outcome. In that setting the son has chosen to not pursue escalation of care and the patient will be made DO NOT RESUSCITATE. If he fails to show any significant improvement over the next 12 to 24 hours, consideration for transition to a comfort care approach might be reasonable given the patient's underlying medical conditions, poor nutritional status, and severe fibrotic lung disease. Tracheostomy and PEG tube would not be pursued. History of Present Illness Reason for Consultation: Cardiac/Respiratory Arrest Requesting Physician: Dr. Vivas History of Present Illness Patient is a 73-year-old male with a history significant for interstitial pulmonary disease, chronic respiratory failure with hypoxia on 3 L nasal cannula at all times, and chronic diarrhea per conversation with the patient's son who presented to the emergency department after cardiac arrest. The son reports the patient had been enjoying his typical state of health and had had no issues other than ongoing episodes of diarrhea with occasional episodes of soiling himself. He states that he heard a thud upstairs and found the patient on the ground unresponsive. EMS was contacted. Patient was found to be in PEA upon EMS arrival. The patient received 2 rounds of epinephrine followed by ROSC. Patient was intubated in the field. Patient was initiated on epinephrine and fentanyl upon arrival in the emergency department. LEFT CVL was placed. CT head pending. Currently, they are not significant records from our institution for recent visits for the patient. [facility] The son is present at bedside and reports that his father had been without significant symptoms prior to today. Patient unable to contribute to HPI secondary to intu bation with mechanical ventilation. Allergies Allergy/AdvReac Type Severity Reaction Status Date / Time No Known Allergies Allergy Unverified 12/13/23 12:46 Patient History Social History Smoking Status: Unknown if ever smoked Communication Ability: Unable Communication Ability Comment: intubated upon arrival Beliefs That Will Affect Care: None Current Living Situation: Alone Feels Safe at Home: Declines to Answer Review of Systems Review of Systems: Unable to obtain secondary to current state of extremis. Physical Exam Physical Exam: VITAL SIGNS - Vital signs and nursing notes were reviewed. GENERAL - 73-year-old frail appearing male who is intubated and sedated. SKIN - Without rashes. Abrasions to the anterior chest secondary to mechanical CPR device. HEAD - NC/AT. EYES - Pupils fixed and equal bilaterally. EARS - No deformities of external structures noted on gross examination bilaterally. NOSE - Midline and without cyanosis. MOUTH/OROPHARYNX - ETT in place. LUNGS - Coarse breath sounds bilaterally. CARDIAC - RRR with S1/S2. No murmur, rubs, or gallops appreciated. ABDOMEN - Abdominal contour scaphoid without pulsations or visible masses. EXTREMITIES - Frail appearing. Unable to assess strength. NEUROLOGIC - Pupils fixed and equal bilaterally. No response to painful stimuli. Minimal gag reflex. Occasional myoclonic jerking movements. Results & Data Results & Data Vital Signs (Past 12 Hours) Vital Signs Temp Pulse Resp BP Pulse Ox O2 Del Method FiO2 12/13/23 09:40 32.3 C L 70 20 97 12/13/23 09:35 32.5 C L 72 20 97 12/13/23 09:30 32.6 C L 72 20 98 12/13/23 09:25 32.7 C L 78 22 99 12/13/23 09:20 32.8 C L 71 21 87 L 12/13/23 09:18 107/67 12/13/23 09:18 32.8 C L 73 22 12/13/23 09:16 95/75 L 12/13/23 09:16 32.8 C L 71 22 100 12/13/23 09:15 32.9 C L 74 22 92 12/13/23 09:14 110/72 12/13/23 09:14 32.9 C L 79 21 95 12/13/23 09:12 104/70 12/13/23 09:12 32.9 C L 73 22 98 12/13/23 09:10 32.9 C L 72 20 98 12/13/23 09:10 104/75 12/13/23 09:08 107/75 12/13/23 09:08 32.9 C L 74 23 97 12/13/23 09:06 33.0 C L 70 26 H 99 12/13/23 09:06 106/74 12/13/23 09:05 33.0 C L 72 15 100 12/13/23 09:04 33.0 C L 74 26 H 99 12/13/23 09:04 120/77 12/13/23 09:02 112/75 12/13/23 09:02 33.0 C L 74 27 H 99 12/13/23 09:00 119/77 12/13/23 09:00 33.0 C L 76 30 H 100 12/13/23 08:58 118/86 12/13/23 08:58 32.9 C L 73 28 H 98 12/13/23 08:56 32.9 C L 74 28 H 99 12/13/23 08:56 127/78 12/13/23 08:55 32.9 C L 76 25 H 99 12/13/23 08:54 32.8 C L 76 26 H 99 12/13/23 08:54 117/75 12/13/23 08:52 132/86 12/13/23 08:52 32.7 C L 75 28 H 99 12/13/23 08:50 32.6 C L 75 24 100 12/13/23 08:50 128/81 12/13/23 08:48 32.5 C L 78 23 100 12/13/23 08:48 130/83 12/13/23 08:46 32.2 C L 77 27 H 100 12/13/23 08:46 125/90 12/13/23 08:45 32.1 C L 77 23 100 12/13/23 08:44 31.9 C L 80 21 97 12/13/23 08:44 112/81 12/13/23 08:42 31.6 C L 84 25 H 12/13/23 08:42 115/84 12/13/23 08:40 97/65 L 12/13/23 08:40 31.0 C L 83 22 99 12/13/23 08:38 142/94 H 12/13/23 08:30 50 12/13/23 08:22 80 20 100 100 12/13/23 08:21 79 16 70/45 L 100 Room Air 12/13/23 08:17 82 Coding Level of Care Code 90700 CRITICAL CARE 1ST 30-74M Diagnoses Cardiac arrest I46.9 PEA (Pulseless electrical activity) I46.9 Acute on chronic hypoxic respiratory failure J96.21 Interstitial lung disease J84.9 Chronic hypoxic respiratory failure J96.11 Severe protein-calorie malnutrition E43 Diarrhea R19.7
--- NOTE | 2023-12-13 10:16 | Procedure Note ---
Procedure Note Date of Service December 13, 2023 Note Procedure: Arterial Line Placement Attending: Dr. Kuhn APC: Vincent Cohn PA-C Indication: Hemodynamic monitoring Anesthesia: None Emergent Consent implied in the setting of clinical deterioration and need for close hemodynamic monitoring, ABG monitoring, frequent lab draws, etc. A time-out was completed verifying correct patient, procedure, site, positioning, and implant(s) or special equipment if applicable. Allens test was performed to ensure adequate perfusion. Patients RIGHT wrist was prepped and draped in the usual sterile fashion. Ultrasound guidance was used to aid needle placement. A 20g Arrow arterial line was introduced into the RIGHT Radial artery. Catheter was threaded, and the needle was removed with appropriate blood return. Good waveform was observed. The patient tolerated the procedure well. Confirmation of placement with ultrasound. Blood Loss: Minimal Complications: None Procedural Ultrasound Guidance: Procedure Date: 12/13/2023 Indication: Hemodynamic Monitoring, Frequent ABGs/Lab draws. Attending: Dr. Kuhn APC: Vinecnt Cohn PA-C Artery Identified: YES Line confirmed in Artery with ultrasound: YES Complications: NONE Patient tolerated procedure: WELL Coding CPT Codes Tubes, Drains, and Vasc Access - Tubes, Drains, and Vasc Access: [id number] Arterial Cath/Cannulation Sampling/Monitoring/Transfusion ([id number]) [facility] [place] Procedure Codes (Charges) Tubes, Drains, and Vasc Access Procedure 1: Tubes, Drains, and Vasc Access: [id number] Arterial Cath/Cannulation Sampling/Monitoring/Transfusion
[2023-12-13 10:54] LABS: Base Excess ABG -1.6 mEq/L (-9-1.8); HCO3 ABG 28 mmol/L (19-24); Oxygen Saturation ABG 99.6 % (90-95); PCO2 ABG 70 mmHg (35-46); PO2 ABG 225 mmHg (80-95); pH ABG 7.21 (7.35-7.45)
--- NOTE | 2023-12-13 10:54 | XRay Report ---
KUB HISTORY: Nasogastric tube placement. COMPARISON: None. FINDINGS: The nasogastric tube terminates at the gastric cardia with the fenestrated line at the dist al esophagus. This should be advanced by approximately 5 to 10 cm. Gaseous distention of the stomach and bowel within the right upper quadrant is partially visualized on this study. There is interstitia l thickening again noted at the lung bases. No renal calculi. No ureteral calculi. Abnormal appearan ce of the bowel within the right midabdomen is likely due to the distended bowel loops. Pneumoperiton eum is considered less likely . IMPRESSION: 1. Abnormal appearance of the bowel within the right midabdomen is likely due to the distended bowel loops. Pneumoperitoneum is considered less likely. Of note, there is no evidence for pneumoperitoneum on the same day chest CT.. 2. Nasogastric tube terminates at the gastric cardia with the fenestrated line at the distal esophagu s. This should be advanced by approximately 5 to 10 cm. 3. Gaseous distention of the stomach and bowel right upper quadrant which is partially visualized on this study. ACT 112: Negative or not required by law. Electronically signed by: Po Wilkerson M.D. 12/13/2023 10:52 AM
--- NOTE | 2023-12-13 11:00 | CT Scan Report ---
HEAD CT NONCONTRAST CT DOSE: HISTORY: syncope TECHNIQUE: Multiaxial CT images of the head were performed without the use of intravenous contrast. A utomated exposure control was utilized for this study. A dose lowering technique was utilized adheri ng to the principles of ALARA. Comparison: None. Findings: The paranasal sinuses and mastoid air cells are clear. The calvarium and skull base are int act. The ventricles and sulci are within normal limits. There is no mass, hematoma, midline shift, ac [place] infarct. Patchy periarticular white matter hypodensity is nonspecific but favors mild microvascul ar ischemic change given the patient's age. Impression: No acute infarct or intracranial hemorrhage. ACT 112: Negative or not required by law. Electronically signed by: Po Wilkerson M.D. 12/13/2023 10:58 AM
--- NOTE | 2023-12-13 11:07 | CT Scan Report ---
CT chest diagnostic wo con CT DOSE: 767.27 mGy.cm CLINICAL HISTORY: 73 years-old Male with arrest, ?h/o pulmonary fibrosis. Acute respiratory failure in a patient with possible pulmonary fibrosis TECHNIQUE: Multiaxial CT images of the chest were performed without contrast. A dose lowering techni que was utilized adhering to the principles of ALARA. COMPARISON: Chest radiograph of same day FINDINGS: Unremarkable thyroid. Borderline enlarged mediastinal lymph nodes include a 2.2 x 1.2 cm crocker bcarinal lymph node and paratracheal lymph nodes measuring up to 10 mm in short axis. The heart is no rmal in size. No large pericardial effusion. Extensive coronary artery calcifications. Atherosclerosi s of the thoracic aorta without aneurysm. Endotracheal is present within the trachea, 3.4 cm superior to the rahel. Moderate pneumomediastinum . No pneumothorax or large pleural effusion. Pulmonary fibrosis with multilobar distribution of tract ion bronchiectasis, subpleural reticulation with intermixed groundglass opacities. There is bibasilar honeycombing. A suture line within the superior segment right lower lobe is suggestive of a prior we dge resection. No lobar space consolidation typical for pneumonia. There is intralobular septal thick ening. Calcified granuloma in the lateral basal segment left lower lobe. Tracheobronchial secretions. Gaseous distention of the stomach. No esophageal wall thickening however the aforementioned pneumomed iastinum does track along the distal esophagus. There is no free air. Mildly distended gallbladder wi th borderline wall thickening. Pancreatic parenchymal calcifications suggestive of chronic pancreatit is. Unremarkable soft tissues. Anteromedial rib cortical angulation/disruption involves the right sec ond through sixth ribs and the left second through sixth ribs. The vertebral bodies appear intact. IMPRESSION: 1. Satisfactory positioning of the endotracheal tube. Tracheobronchial secretions are noted along wit h moderate pneumomediastinum. 2. Chronic interstitial lung disease with fibrosis, diffuse bronchiectasis with bibasilar predominant honeycombing suggestive of UIP. 3. Mild mediastinal and hilar lymphadenopathy may be related to the chronic interstitial lung disease . 4. Bilateral anterior second through sixth rib fractures appear to be acute or subacute without signi ficant displacement. No pneumothorax. 5. Equivocal wall thickening of the gallbladder could be correlated with ultrasound. 6. No pleural effusion or airspace consolidation typical for pneumonia. ACT 112: Negative or not required by law. Electronically signed by: Chad Victoria M.D. 12/13/2023 11:05 AM
[2023-12-13] MEDS ORDERED: ALBUT/IPRATROP 3MG/0.5MG NEB 3 ML VIAL INH PRN (11:53)
--- NOTE | 2023-12-13 12:16 | Electrocardiogram Report ---
Test Reason : Blood Pressure : / mmHG Vent. Rate : 084 BPM Atrial Rate : 084 BPM P-R Int : 168 ms QRS Dur : 134 ms QT Int : 394 ms P-R-T Axes : 060 092 -48 degrees QTc Int : 465 ms Sinus rhythm with Premature atrial complexes Right bundle branch block Abnormal ECG No previous ECGs available Confirmed by João Dobson ([id number]) on 12/13/2023 12:16:20 PM Referred By: Confirmed By:João Dobson
[2023-12-13 12:37] LABS: iSTAT Art Bld Gas pCO2 Correct 56 mmHg (35-46); iSTAT Arterial Blood Gas HCO3 28 meg/L (19-24); iSTAT Arterial Blood Gas pCO2 68 mmHg (35-46); iSTAT Arterial Blood Gas pH 7.23 (7.35-7.45); iSTAT Arterial Blood Gas pO2 187 mmHg (80-95); iSTAT Arterial Blood Gas pO2 C 163; iSTAT Carbon Dioxide 30 mmol/L (24-31); iSTAT FiO2 45 %; iSTAT Hematocrit 36 % (42-52); iSTAT Hemoglobin 12.2 g/dl (14.0-18.0); iSTAT Potassium 3.1 mmol/L (3.3-5.0); iSTAT Site Art Line; iSTAT Sodium 136 mmol/L (135-144)
[2023-12-13] MEDS: Patient's ALLERGY Info needs ENTERED STA (12:46)
[2023-12-13] MEDS: PLASMA-LYTE A 1,000 ML IV SCH (12:48)
[2023-12-13] MEDS: PNEUMOCOCCAL VACCINE (PCV20) 20-VAL CONJ-DIP CRM/PF 0.5 ML SYR IM ONE (13:09)
[2023-12-13] MEDS: INFLUENZA VACCINE HIGH-DOSE (HD-IIV4) PF 65+ 0.7mL SYR IM ONE (13:09)
[2023-12-13 13:15] LABS: Hematocrit (blood only) 36.1 % (42.0-52.0); Hemoglobin 11.9 g/dl (14.0-18.0); Mean Platelet Volume 9.6 fL (9.4-12.4); Platelet Count 245 K/uL (130-400); RDW Coefficient of Variation 13.6 % (11.5-14.5); RDW Standard Deviation 50.1 fL (36.4-46.3); Red Blood Count 3.61 M/uL (4.70-6.10); White Blood Count 18.07 K/ul (4.8-10.8)
[2023-12-13 13:33] LABS: BUN Creatinine Ratio 26.6 (10-20); Calcium 8.9 mg/dl (8.6-10.3); Creatinine Clr Calc Pharmacy 63.4 ml/min; Est GFR (Non-African American) 89.7 ml/min; Phosphorus 4.3 mg/dl (2.5-4.9); Potassium 3.2 mmol/L (3.5-5.1)
--- NOTE | 2023-12-13 14:42 | XCELERA ---
[id number]_[id number]___[id number].pdf
--- NOTE | 2023-12-13 15:04 | Electroencephalogram ---
EEG Procedure Note Date of Service December 13, 2023 Start / End Times Start Time: 1341 End Time: [address] kris osorio History arrest Inpatient Medication List Epinephrine HCl () 4 mg in 254 mls @ 4.039 mls/hr IV .Q24H [facility]; Protocol Stop: 01/12/24 08:44 Last Admin: 12/13/23 14:15 Dose: 0.1 mcg/kg/min, 20.2 mls/hr Documented By: KAE Co-signed By: CAM Titration: 12/13/23 14:15 Dose: Infused Documented By: ES Co-signed By: CAM Titration: 12/13/23 11:57 Dose: 0.1 mcg/kg/min, 20.2 mls/hr Documented By: Titration: 12/13/23 11:26 Dose: 0.2 mcg/kg/min, 40.4 mls/hr Documented By: KAE Co-signed By: JS Admin: 12/13/23 08:43 Dose: 0.03 mcg/kg/min, 6.1 mls/hr Documented By: MWS Co-signed By: KALEY Fentanyl Citrate (Fentanyl Citrate) 2,500 mcg in 250 mls @ 7.5 mls/hr IV .[id number] [facility]; Protocol Stop: 12/27/23 08:44 Last Titration: 12/13/23 14:20 Dose: 75 mcg/hr, 7.5 mls/hr Documented By: KAE Co-signed By: JS Titration: 12/13/23 11:58 Dose: 50 mcg/hr, 5 mls/hr Documented By: ES Co-signed By: JS Titration: 12/13/23 11:40 Dose: 25 mcg/hr, 2.5 mls/hr Documented By: ES Co-signed By: JS Titration: 12/13/23 11:26 Dose: 0 mcg/hr, 0 mls/hr Documented By: ES Co-signed By: JS Titration: 12/13/23 09:15 Dose: 50 mcg/hr, 5 mls/hr Documented By: MWS Co-signed By: HS Admin: 12/13/23 08:45 Dose: 25 mcg/hr, 2.5 mls/hr Documented By: MWS Co-signed By: KALEY Parenteral Electrolytes (Plasma-Lyte A Ph 7.4) 1,000 mls @ 100 mls/hr IV .Q10H [facility] Stop: 01/12/24 11:59 Last Admin: 12/13/23 12:48 Dose: 100 mls/hr Documented By: JS Discontinued Medications Fentanyl Citrate (Fentanyl Citrate 2,500 Mcg/250 Ml Bag) Confirm Administered Dose 2,500 mcg IV .STK-MED ONE Stop: 12/13/23 08:29 Last Admin: 12/13/23 08:49 Dose: Not Given Documented By: VIKA Sodium Chloride (Nss) 1,000 mls @ 999 mls/hr IV .Q1H1M ONE Stop: 12/13/23 09:37 Last Infusion: 12/13/23 11:27 Dose: Infused Documented By: Admin: 12/13/23 08:44 Dose: 999 mls/hr Documented By: VIKA Cefepime HCl (Maxipime) 2,000 mg in 20 mls @ 5 mls/min IV NOW STA; Protocol Stop: 12/13/23 08:52 Last Admin: 12/13/23 09:18 Dose: 5 mls/min Documented By: VIKA Potassium Chloride (K Clif[place] / Wtr) 10 meq in 100 mls @ 100 mls/hr IV Q1H [facility] Stop: 12/13/23 10:59 Last Infusion: 12/13/23 12:21 Dose: Infused Documented By: Admin: 12/13/23 11:25 Dose: 100 mls/hr Documented By: Infusion: 12/13/23 10:18 Dose: Infused Documented By: Admin: 12/13/23 09:18 Dose: 100 mls/hr Documented By: VIKA Influenza Virus Vaccine (Influenza Vaccine High-Dose (Hd-Iiv4) Pf 65+ 0.7ml Syr) 0.7 ml IM .ONCE ONE Stop: 12/13/23 12:42 Last Admin: 12/13/23 13:09 Dose: Not Given Documented By: JS Miscellaneous Information (Patient's Allergy Info Needs Entered) 1 each N/A NOW STA Stop: 12/13/23 12:20 Last Admin: 12/13/23 12:46 Dose: 1 each Documented By: JS Pneumococcal 20-Valent Conj Vacc (Pneumococcal Vaccine (Pcv20) 20-Judy Conj-Dip Crm/Pf 0.5 Ml Syr) 0.5 ml IM .ONCE ONE Stop: 12/13/23 12:42 Last Admin: 12/13/23 13:09 Dose: Not Given Documented By: JS Description This is a 21 electrode EEG with a single channel dedicated to limited EKG. The electrodes were placed in accordance with the International 10-20 system. Interpretation This is a 21 electrode EEG with a single channel dedicated to limited EKG. The electrodes were placed in accordance with the International 10-20 system. diffuse slowing and small amplitude throughout. Photic stimulation: unremarkable Hyperventilation performed: ___ unremarkable; _x_ not performed. episodic sharp waves noted Interpretation Abnormal EEG due to diffuse small amplitude background and episodic sharp waves. Suggestive of diffuse cortical dysfunction. However, patient is not in status epilepticus. [facility] EEG Procedure Codes Indication for Procedure (1) Cardiac arrest: Neurology Neurology: 71212 EEG include record awake & drowsy
[2023-12-13] MEDS: POTASSIUM CHLORIDE / WTR 20 MEQ/100 ML PLCT IV SCH (15:28)
[2023-12-13 15:52] LABS: iSTAT Art Bld Gas pCO2 Correct 58 mmHg (35-46); iSTAT Art Bld Gas pH Corrected 7.291 (7.35-7.45); iSTAT Arterial Blood Gas HCO3 29 meg/L (19-24); iSTAT Arterial Blood Gas pCO2 64 mmHg (35-46); iSTAT Arterial Blood Gas pH 7.26 (7.35-7.45); iSTAT Arterial Blood Gas pO2 140 mmHg (80-95); iSTAT Arterial Blood Gas pO2 C 128; iSTAT Carbon Dioxide 31 mmol/L (24-31); iSTAT FiO2 35 %; iSTAT Hematocrit 35 % (42-52); iSTAT Hemoglobin 11.9 g/dl (14.0-18.0); iSTAT Site Art Line; iSTAT Sodium 137 mmol/L (135-144)
[2023-12-13] MEDS: ICU Protocol for HYPERglycemia SCH (16:42)
[2023-12-13 18:30] LABS: Hematocrit (blood only) 31.9 % (42.0-52.0); Hemoglobin 10.7 g/dl (14.0-18.0); Mean Corpuscular Hemoglobin 32.9 pg (25.0-34.0); Mean Corpuscular Hgb Conc 33.5 g/dL (32.0-36.0); Mean Corpuscular Volume 98.2 fL (80.0-100.0); Mean Platelet Volume 9.4 fL (9.4-12.4); Platelet Count 226 K/uL (130-400); RDW Coefficient of Variation 13.5 % (11.5-14.5); RDW Standard Deviation 49.4 fL (36.4-46.3); Red Blood Count 3.25 M/uL (4.70-6.10); White Blood Count 17.14 K/ul (4.8-10.8)
[2023-12-13 18:39] LABS: BUN Creatinine Ratio 27.9 (10-20); Calcium 8.2 mg/dl (8.6-10.3); Creatinine Clr Calc Pharmacy 58.2 ml/min; Est GFR (African American) 100.4 ml/min; Est GFR (Non-African American) 86.6 ml/min; Magnesium 1.6 mg/dl (1.7-2.4); Phosphorus 2.3 mg/dl (2.5-4.9); Potassium 3.6 mmol/L (3.5-5.1)
[2023-12-13] MEDS: GADOBUTROL 65ML VIAL IV ONE (19:53)
--- NOTE | 2023-12-13 20:28 | Magnetic Resonance Report ---
Exam(s): MRI HEAD W/WO Contrast IV Amt: 5.5ml gadavist EXAM: MR Head Without and With Intravenous Contrast CLINICAL HISTORY: Reason for exam: s/p arrest, ??anoxia. TECHNIQUE: Magnetic resonance images of the head/brain without and with intravenous contrast in multiple planes. CONTRAST: Patient received 5.5ml gadavist of IV contrast COMPARISON: CT head 12/13/2023. FINDINGS: Brain: Diffusion restriction in the bilateral basal nuclei as well as cortical diffusion restriction in the right parietal lobe compatible with anoxic brain injury. Global parenchymal volume loss with extensive chronic microvascular ischemic changes. 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 No hemorrhage. Ventricles: No ventriculomegaly. Bones/joints: Unremarkable. No acute fracture. Sinuses: Unremarkable as visualized. Mastoid air cells: Bilateral mastoid effusions. Orbits: Bilateral lens replacement. IMPRESSION: 1. Diffusion restriction in the bilateral basal nuclei as well as cortical diffusion restriction in the right parietal lobe compatible with anoxic brain injury. 2. Global parenchymal volume loss with extensive chronic microvascular ischemic changes. Communications: Call Doctor Above results Electronically signed by: Huber Proctor MD 12/13/23 20:27 PM
[2023-12-13] MEDS: FAMOTIDINE 20 MG in SYRINGE 3 ML IV SCH (20:38)
[2023-12-13 20:43] LABS: iSTAT Art Bld Gas pCO2 Correct 60 mmHg (35-46); iSTAT Art Bld Gas pH Corrected 7.292 (7.35-7.45); iSTAT Arterial Blood Gas HCO3 29 meg/L (19-24); iSTAT Arterial Blood Gas pCO2 62 mmHg (35-46); iSTAT Arterial Blood Gas pH 7.29 (7.35-7.45); iSTAT Arterial Blood Gas pO2 107 mmHg (80-95); iSTAT Arterial Blood Gas pO2 C 104; iSTAT Carbon Dioxide 31 mmol/L (24-31); iSTAT FiO2 30 %; iSTAT Hematocrit 32 % (42-52); iSTAT Hemoglobin 10.9 g/dl (14.0-18.0); iSTAT Potassium 3.2 mmol/L (3.3-5.0); iSTAT Site Art Line; iSTAT Sodium 137 mmol/L (135-144)
[2023-12-13] MEDS: fentaNYL BOLUS from BAG IV PRN (20:58)
[2023-12-13] MEDS: HEPARIN SOD 5,000 UNIT/0.5 ML VIAL SQ SCH (21:05)
[2023-12-13] MEDS ORDERED: POTASSIUM PHOS 3 MMOL/1 ML INFUSION IV STA (22:07)
[2023-12-13] MEDS: POTASSIUM PHOSPHATE 21 MMOL in SODIUM CHLORIDE 0.9% 500 ML IV STA (22:49)
[2023-12-13] MEDS: MAGNESIUM SULFATE / D5W 1 GM/100 ML BAG IV SCH (22:49)
[2023-12-13 23:34] LABS: iSTAT Art Bld Gas pCO2 Correct 47 mmHg (35-46); iSTAT Art Bld Gas pH Corrected 7.408 (7.35-7.45); iSTAT Arterial Blood Gas HCO3 30 meg/L (19-24); iSTAT Arterial Blood Gas pCO2 46 mmHg (35-46); iSTAT Arterial Blood Gas pH 7.41 (7.35-7.45); iSTAT Arterial Blood Gas pO2 96 mmHg (80-95); iSTAT Arterial Blood Gas pO2 C 98; iSTAT Carbon Dioxide 31 mmol/L (24-31); iSTAT FiO2 30 %; iSTAT Hematocrit 29 % (42-52); iSTAT Hemoglobin 9.9 g/dl (14.0-18.0); iSTAT Potassium 3.4 mmol/L (3.3-5.0); iSTAT Site Art Line; iSTAT Sodium 136 mmol/L (135-144)
[2023-12-14] MEDS: ACETAMINOPHEN 650 MG SUPP PR PRN (01:25)
[2023-12-14 03:56] LABS: BUN Creatinine Ratio 28.9 (10-20); Creatinine Clr Calc Pharmacy 55.6 ml/min; Est GFR (African American) 98.5 ml/min; Magnesium 2.2 mg/dl (1.7-2.4); Phosphorus 2.8 mg/dl (2.5-4.9); Potassium 3.6 mmol/L (3.5-5.1)
[2023-12-14 04:24] LABS: Hematocrit (blood only) 27.5 % (42.0-52.0); Hemoglobin 9.2 g/dl (14.0-18.0); Mean Corpuscular Hemoglobin 32.4 pg (25.0-34.0); Mean Corpuscular Hgb Conc 33.5 g/dL (32.0-36.0); Mean Corpuscular Volume 96.8 fL (80.0-100.0); Platelet Count 182 K/uL (130-400); RDW Coefficient of Variation 13.7 % (11.5-14.5); RDW Standard Deviation 48.7 fL (36.4-46.3); Red Blood Count 2.84 M/uL (4.70-6.10)
[2023-12-14 04:45] LABS: Troponin I High Sensitivity 452.5 pg/ml (0-20)
[2023-12-14 05:11] LABS: iSTAT Art Bld Gas pCO2 Correct 41 mmHg (35-46); iSTAT Art Bld Gas pH Corrected 7.473 (7.35-7.45); iSTAT Arterial Blood Gas HCO3 30 meg/L (19-24); iSTAT Arterial Blood Gas pCO2 39 mmHg (35-46); iSTAT Arterial Blood Gas pH 7.49 (7.35-7.45); iSTAT Arterial Blood Gas pO2 109 mmHg (80-95); iSTAT Arterial Blood Gas pO2 C 114; iSTAT Carbon Dioxide 31 mmol/L (24-31); iSTAT FiO2 30 %; iSTAT Hematocrit 26 % (42-52); iSTAT Hemoglobin 8.8 g/dl (14.0-18.0); iSTAT Potassium 3.3 mmol/L (3.3-5.0); iSTAT Site Art Line; iSTAT Sodium 136 mmol/L (135-144)
[2023-12-14 07:43] LABS: iSTAT Art Bld Gas pCO2 Correct 45 mmHg (35-46); iSTAT Arterial Blood Gas HCO3 31 meg/L (19-24); iSTAT Arterial Blood Gas pCO2 46 mmHg (35-46); iSTAT Arterial Blood Gas pH 7.43 (7.35-7.45); iSTAT Arterial Blood Gas pO2 115 mmHg (80-95); iSTAT Arterial Blood Gas pO2 C 113; iSTAT Carbon Dioxide 32 mmol/L (24-31); iSTAT FiO2 30 %; iSTAT Hematocrit 25 % (42-52); iSTAT Hemoglobin 8.5 g/dl (14.0-18.0); iSTAT Potassium 3.3 mmol/L (3.3-5.0); iSTAT Site Art Line; iSTAT Sodium 135 mmol/L (135-144)
[2023-12-14 08:03] LABS: Hematocrit (blood only) 26.4 % (42.0-52.0); Hemoglobin 9.1 g/dl (14.0-18.0); Mean Corpuscular Hemoglobin 32.6 pg (25.0-34.0); Mean Corpuscular Hgb Conc 34.5 g/dL (32.0-36.0); Mean Corpuscular Volume 94.6 fL (80.0-100.0); Mean Platelet Volume 9.3 fL (9.4-12.4); Platelet Count 177 K/uL (130-400); RDW Coefficient of Variation 13.8 % (11.5-14.5); RDW Standard Deviation 47.8 fL (36.4-46.3); Red Blood Count 2.79 M/uL (4.70-6.10); White Blood Count 13.77 K/ul (4.8-10.8)
--- NOTE | 2023-12-14 08:07 | XRay Report ---
XR chest 1V portable CLINICAL HISTORY: f/u TECHNIQUE: Single frontal radiograph of the chest was obtained. Comparison: Comparison is made to chest radiograph 12/13/[address] chest 12/13/2023 FINDINGS: Lines and tubes are stable. The cardiomediastinal silhouette is normal. Reticular interstitial opacit ies are seen. No evidence of pleural effusion or pneumothorax. IMPRESSION: Interstitial thickening is unchanged from prior exam. No new airspace opacities are seen. ACT 112: Negative or not required by law. Electronically signed by: Nigel Lyon M.D. 12/14/2023 8:05 AM
[2023-12-14 08:15] LABS: BUN Creatinine Ratio 29.4 (10-20); Calcium 7.9 mg/dl (8.6-10.3); Creatinine Clr Calc Pharmacy 52.7 ml/min; Est GFR (African American) 100.9 ml/min; Est GFR (Non-African American) 87.1 ml/min; Magnesium 2.5 mg/dl (1.7-2.4); Potassium 3.5 mmol/L (3.5-5.1)
[2023-12-14 08:27] LABS: Troponin I High Sensitivity 292.2 pg/ml (0-20)
--- NOTE | 2023-12-14 08:38 | Critical Care Progress Note ---
Date of Service December 14, 2023 Assessment & Plan (1) Cardiac arrest: (2) PEA (Pulseless electrical activity): (3) Acute on chronic hypoxic respiratory failure: (4) Interstitial lung disease: (5) Chronic hypoxic respiratory failure: (6) Severe protein-calorie malnutrition: (7) Diarrhea: Plan Reason Critically Ill: 73-year-old male presenting after outside hospital cardiac arrest. Patient with initial PEA rhythm noted upon arrival of EMS. NEURO - * CAM ICU: Unable to assess. * Status post PEA Arrest: * Patient is status post PEA arrest with downtime approximately 8 to 15 minutes with return of spontaneous circulation. Unfortunately, patient is with baseline hypoxemia in the setting of pulmonary fibrosis. He utilizes 3 L nasal cannula at all time. When the patient was found by his son, he was without oxygen in place. This makes anoxic injury and severity of injury much greater on the differential. Patient is not responding to painful stimuli. Minimal gag reflex. He is with myoclonic jerking already. * Head CT without acute findings. * MRI concerning for diffuse anoxic injury. * EEG shows an abnormal pattern with diffuse small amplitude background and episodic sharp waves. Suggestion of diffuse cortical dysfunction. No status epilepticus noted. * Myoclonic jerking has improved. * Close monitoring for development of seizure activity in the likely anoxic patient. * Ongoing neuro checks per unit policy. * Patient's injury represents catastrophic event with diffuse anoxic injury noted on MRI pattern. This likely represents nonrecoverable injury. Combined with the EEG with findings suggestive of diffuse cortical dysfunction, this injury is certainly concerning. * Will discuss goals of care with the son with whom we had previously had discussion. CARDIAC/VASCULAR - * Outside hospital PEA Arrest with ROSC: * Patient found down by son. Resuscitation efforts were initiated by EMS upon arrival. The patient was found to be in PEA. He received 2 rounds of epinephrine and high-quality CPR. He was intubated in the field. Return of spontaneous circulation outside the hospital. Downtime estimated between 8 and 15 minutes per conversation with parties involved. * Continues on epinephrine with maintained blood pressures and MAPs. * Again, no indication for hypothermia protocol as this likely represents respiratory arrest in a patient with chronic hypoxemia. Will aim for normothermia. * No occasion for interventional cardiology at this point. * Has been without dysrhythmia, thankfully. * Monitor on telemetry. RESPIRATORY - * Acute on chronic hypoxic respiratory failure: * Status post PEA arrest. * Patient's story is concerning for respiratory arrest resulting in cardiac arrest secondary to his baseline hypoxia and patient being found without oxygen in place. Review of his chest x-ray shows infiltrative findings consistent with interstitial lung changes. * Will order CT chest to evaluate the extent of documented interstitial lung disease as we have no records at our institution. * [facility]. * Fortunately, I am concerned given the patient's baseline pulmonary status and arrest that the patient's condition may represent nonrecoverable scenario. * Patient presenting with respiratory acidosis. Will assess with ABGs and make ventilator changes as needed. * Social lung disease: * Currently managed at an outside institution. Per conversation with son, the patient is likely on antifibrotic therapy. He continues to have diarrhea associated with this medication. * Patient's imaging studies is concerning for diffuse fibrotic changes. He is currently on supplemental oxygen at baseline at home. GI/NUTRITION - * Isolated elevation of AST. * Will have conversation with the son regarding alcohol use? * Chronic diarrhea: * Appears to be related to the patient's antifibrotic therapy. * Prophylaxis: Famotidine RENAL/LYTES - * Hypokalemia: * Possibly secondary to GI losses with reported history of ongoing diarrheal issues. * Replace potassium to keep >4 in a patient with recent arrest at risk for dysrhythmia. * IVF: Normosol R @ 100mL/hr - * Umanzor in place - Strict I&Os. ENDO - * Unknown h/o DM or Thyroid Dz * BSGs per unit protocol. ISS --> gtt per unit policy. HEME - * Stable H&H ID - * Less likely infectious cause in a patient who had been without issues until this AM per conversation with son. * Lactate clearing. * PCT within normal limits. * Received Cefepime in the ED. * Uncertain the utility of antibiotics otherwise. LINES/IV ACCESS - * PIVs x2 * ETT * LEFT Groin CVL * Umanzor DVT PROPHYLAXIS - * Heparin * SCDs CODE STATUS - * Per conversation between the patient's son and my attending yesterday, the patient's CODE STATUS was changed to DNR/DNI. * Goal was to reassess the patient in 24 hours after continued evaluation includ ing EEG and MRI. * Unfortunately, MRI concerning for diffuse anoxic injury. He is nonresponsive at this time and has a concerning neurological exam at this point. * Will engage patient's sons when they arrive in the ICU for discussion regarding care moving forward. I have personally spent 45 minutes of critical care time in the direct management of this patient. This is a life/limb threatening event. This includes time spent evaluating patient, direct bedside care, chart review, placing orders, interpretation of diagnostic studies, discussion with consultants, patient, and family members, as well as other required patient management activities. This time is exclusive of all separately billable procedures, and teaching time and separate from and in addition to any other critical care service time. Thank you for allowing us to participate in the care of this patient. Please refer to my attending physician's documentation for any further recommendations. Admission and Anticipated Discharge Date Admission Date: December 13, 2023 Supervising Physician Co-Signing Physician Notes Patient seen and examined. EMR reviewed. Discussed with son as well as with critical care RONNY at bedside. Patient again was independently evaluated and di scussed on multidisciplinary rounds. Neurologically no significant change. EEG and MRI concerning for diffuse anoxic encephalopathy. Prognosis at 24 hours is poor based on exam. The son would like to continue for 72 hours to allow for more thorough assessment of neurological recovery although at this point in time there are no encouraging signs for functional recovery. Patient does not meet brain dress criteria currently as he had EEG activity and does have some movement to painful stimulus. Patient remains critically ill. Prognosis for functional recovery is poor Subjective Patient seen and evaluated at bedside. Remains unresponsive without signs of neurological activity. Review of Systems Review of Systems: Unable to obtain secondary to current state of extremis. Physical Exam Physical Exam: VITAL SIGNS - Vital signs and nursing notes were reviewed. GENERAL - 73-year-old frail appearing male who is intubated. SKIN - Without rashes. Abrasions to the anterior chest secondary to mechanical CPR device. HEAD - NC/AT. EYES - Pupils fixed. No corneal reflex. NOSE - Midline and without cyanosis. MOUTH/OROPHARYNX - ETT in place. LUNGS - Clear breath sounds appreciated bilaterally. CARDIAC - RRR with S1/S2. No murmur, rubs, or gallops appreciated. ABDOMEN - Abdominal contour scaphoid without pulsations or visible masses. EXTREMITIES - Frail appearing. Unable to assess strength. NEUROLOGIC - Pupils fixed and nonreactive. No corneal reflex present. No cough reflex. No response to painful stimuli. Results & Data Results & Data Vital Signs (Past 12 Hours) Vital Signs Temp Pulse Resp BP Pulse Ox O2 Del Method FiO2 12/14/23 05:15 37.7 C H 88 24 98 12/14/23 05:00 105/62 12/14/23 05:00 37.8 C H 85 32 H 99 12/14/23 04:46 37.8 C H 87 32 H 98 12/14/23 04:30 37.8 C H 88 3 L 99 12/14/23 04:15 37.8 C H 89 2 L 99 12/14/23 04:00 37.8 C H 88 4 L 98 12/14/23 04:00 105/61 12/14/23 04:00 30 12/14/23 04:00 84 123/50 L 12/14/23 03:45 37.7 C H 88 13 99 12/14/23 03:35 83 24 98 30 12/14/23 03:30 37.8 C H 84 2 L 98 12/14/23 03:15 37.8 C H 93 H 7 L 98 12/14/23 03:00 37.8 C H 90 7 L 98 12/14/23 03:00 108/66 12/14/23 02:45 37.8 C H 90 3 L 98 12/14/23 02:30 37.8 C H 90 12 97 12/14/23 02:15 37.8 C H 87 4 L 97 12/14/23 02:00 114/59 L 12/14/23 02:00 37.8 C H 98 H 17 98 12/14/23 01:45 37.7 C H 93 H 12 98 12/14/23 01:30 37.7 C H 97 H 20 99 12/14/23 01:25 37.7 C H 12/14/23 01:15 37.7 C H 87 18 99 12/14/23 01:00 37.6 C H 92 H 25 H 100 12/14/23 01:00 102/60 12/14/23 00:45 37.6 C H 91 H 19 100 12/14/23 00:30 37.6 C H 92 H 25 H 99 12/14/23 00:15 37.5 C 88 24 99 12/14/23 00:00 107/63 12/14/23 00:00 37.5 C 98 H 25 H 98 12/14/23 00:00 30 12/14/23 00:00 92 H 118/49 L 12/14/23 00:00 87 12/13/23 23:45 37.4 C 89 19 98 12/13/23 23:42 90 33 H 100 30 12/13/23 23:30 37.3 C 93 H 26 H 99 12/13/23 23:15 37.3 C 91 H 26 H 100 12/13/23 23:00 103/63 12/13/23 23:00 37.2 C 85 26 H 99 12/13/23 22:45 37.1 C 91 H 25 H 100 12/13/23 22:30 37.0 C 88 22 99 12/13/23 22:15 36.9 C 88 24 98 12/13/23 22:04 36.8 C 95 H 32 H 100 12/13/23 22:04 96/53 L 12/13/23 22:00 36.8 C 99 H 31 H 94 12/13/23 21:45 36.7 C 87 21 99 12/13/23 21:30 36.6 C 90 22 100 12/13/23 21:30 Mechanical Vent 30 12/13/23 21:15 36.6 C 97 H 26 H 89 L 12/13/23 21:00 36.5 C 89 32 H 100 12/13/23 20:45 36.6 C 96 H 32 H 94 12/13/23 20:30 36.5 C 98 H 33 H 100 Coding Level of Care Code 70999 CRITICAL CARE 1ST 30-74M Diagnoses Cardiac arrest I46.9 PEA (Pulseless electrical activity) I46.9 Acute on chronic hypoxic respiratory failure J96.21 Interstitial lung disease J84.9 Chronic hypoxic respiratory failure J96.11 Severe protein-calorie malnutrition E43 Diarrhea R19.7
[2023-12-14 11:46] LABS: iSTAT Art Bld Gas pCO2 Correct 45 mmHg (35-46); iSTAT Arterial Blood Gas HCO3 30 meg/L (19-24); iSTAT Arterial Blood Gas pCO2 46 mmHg (35-46); iSTAT Arterial Blood Gas pH 7.41 (7.35-7.45); iSTAT Arterial Blood Gas pO2 114 mmHg (80-95); iSTAT Arterial Blood Gas pO2 C 112; iSTAT Carbon Dioxide 31 mmol/L (24-31); iSTAT FiO2 30 %; iSTAT Hematocrit 26 % (42-52); iSTAT Hemoglobin 8.8 g/dl (14.0-18.0); iSTAT Potassium 3.4 mmol/L (3.3-5.0); iSTAT Site Art Line; iSTAT Sodium 136 mmol/L (135-144)
[2023-12-14 12:08] LABS: Hematocrit (blood only) 27.4 % (42.0-52.0); Hemoglobin 9.3 g/dl (14.0-18.0); Mean Corpuscular Hemoglobin 32.2 pg (25.0-34.0); Mean Corpuscular Hgb Conc 33.9 g/dL (32.0-36.0); Mean Corpuscular Volume 94.8 fL (80.0-100.0); Mean Platelet Volume 9.7 fL (9.4-12.4); Platelet Count 158 K/uL (130-400); RDW Standard Deviation 48.5 fL (36.4-46.3); Red Blood Count 2.89 M/uL (4.70-6.10); White Blood Count 12.45 K/ul (4.8-10.8)
[2023-12-14 12:26] LABS: BUN Creatinine Ratio 31.5 (10-20); Calcium 7.9 mg/dl (8.6-10.3); Creatinine Clr Calc Pharmacy 61.3 ml/min; Est GFR (African American) 107.4 ml/min; Est GFR (Non-African American) 92.7 ml/min; Magnesium 2.3 mg/dl (1.7-2.4); Phosphorus 3.7 mg/dl (2.5-4.9); Potassium 3.6 mmol/L (3.5-5.1)
[2023-12-14] MEDS: ARTIFICIAL TEARS OP OINT 3.5 GM TUBE OP PRN (18:31)
--- NOTE | 2023-12-14 18:36 | Hospitalist Progress Note ---
Date of Service December 14, 2023 Assessment & Plan (1) Cardiac arrest: Plan: Cardiac arrest in a 73 yo male with fixed pupils, lack of gag reflex, not responsive to painful stimuli. Patient with history of pulmonary fibrosis with baseline hypoxemia. Anoxic brain injury appears very likely with above signs. MRI brain also concerning for anoxic brain injury vent per ICU team. (2) Acute on chronic hypoxic respiratory failure: Plan: as above (3) Severe protein-calorie malnutrition: Plan: BMI is 15. Admission and Anticipated Discharge Date Admission Date: December 13, 2023 Subjective Patient is intubated. Review of Systems Review of Systems: Unobtainable due to endotracheal tube Physical Exam Physical Exam: GENERAL - A frail male who appears stated age is intubated and sedated. SKIN - Without rashes HEENT - NC/AT. Pupils fixed and equal bilaterally. Normal upon external inspection. no trauma, or abrasions LUNGS - Coarse breath sounds bilaterally. CARDIAC - RRR with S1/S2. ABDOMEN - Abdominal contour scaphoid without pulsations or visible masses. EXTREMITIES - Frail appearing. Unable to assess strength. NEUROLOGIC - Pupils fixed and equal bilaterally. No response to painful stimuli. Minimal gag reflex. Occasional myoclonic jerking movements. Results & Data Results & Data Vital Signs (Past 12 Hours) Vital Signs Pulse Resp BP Pulse Ox FiO2 12/14/23 18:30 100 H 24 97 12/14/23 18:15 101 H 24 97 12/14/23 18:00 135/78 12/14/23 18:00 99 H 0 L 97 12/14/23 17:45 99 H 21 97 12/14/23 17:30 98 H 24 97 12/14/23 17:15 98 H 24 97 12/14/23 17:00 134/80 12/14/23 17:00 95 H 24 97 12/14/23 16:45 96 H 24 97 12/14/23 16:30 96 H 24 97 12/14/23 16:15 97 H 24 97 12/14/23 16:00 98 H 12/14/23 16:00 97 H 24 98 12/14/23 16:00 127/77 12/14/23 16:00 30 12/14/23 16:00 94 H 151/66 H 12/14/23 15:58 94 H 24 98 30 12/14/23 15:45 95 H 24 98 12/14/23 15:30 95 H 24 97 12/14/23 15:15 100 H 24 97 12/14/23 15:00 120/70 12/14/23 15:00 88 24 98 12/14/23 14:45 90 24 98 12/14/23 14:30 89 24 98 12/14/23 14:15 84 21 98 12/14/23 14:00 120/68 12/14/23 14:00 87 24 98 12/14/23 13:45 83 21 98 12/14/23 13:30 82 29 H 98 12/14/23 13:15 82 24 98 12/14/23 13:00 115/66 12/14/23 13:00 83 24 98 12/14/23 12:45 81 24 98 12/14/23 12:30 81 24 98 12/14/23 12:15 80 24 98 12/14/23 12:00 115/68 12/14/23 12:00 81 24 98 12/14/23 12:00 30 12/14/23 12:00 82 137/60 12/14/23 11:45 79 24 98 12/14/23 11:31 80 24 98 30 12/14/23 11:30 80 24 98 12/14/23 11:15 80 24 98 12/14/23 11:00 114/65 12/14/23 11:00 79 24 97 12/14/23 10:45 80 24 98 12/14/23 10:30 79 24 98 12/14/23 10:15 83 24 98 12/14/23 10:00 120/70 12/14/23 10:00 85 25 H 98 12/14/23 09:45 83 30 H 98 12/14/23 09:30 88 30 H 98 12/14/23 09:15 91 H 31 H 91 12/14/23 09:00 122/75 12/14/23 09:00 87 25 H 90 12/14/23 08:45 81 27 H 94 12/14/23 08:30 76 24 95 12/14/23 08:15 77 24 96 12/14/23 08:00 30 12/14/23 08:00 81 135/60 12/14/23 08:00 87 12/14/23 08:00 120/67 12/14/23 08:00 76 21 96 12/14/23 07:45 76 24 96 12/14/23 07:30 74 24 100 12/14/23 07:28 79 28 H 97 30 12/14/23 07:15 76 24 98 12/14/23 07:00 75 21 97 12/14/23 07:00 108/64 12/14/23 06:45 82 26 H 97 12/14/23 06:43 78 24 97 PG Care Time/CCT Total # of Minutes Spent Total Time Spent with Patient: Total time spent is greater than 50% in coordination of care (as documented) at patient's floor/unit and/or counseling patient: Coding Level of Care Code 38670 SUB INP/OBS CARE 2/35MIN Diagnoses Cardiac arrest I46.9 Acute on chronic hypoxic respiratory failure J96.21 Severe protein-calorie malnutrition E43
[2023-12-14 18:42] LABS: Hematocrit (blood only) 29.4 % (42.0-52.0); Hemoglobin 9.9 g/dl (14.0-18.0); Mean Corpuscular Hemoglobin 32.6 pg (25.0-34.0); Mean Corpuscular Hgb Conc 33.7 g/dL (32.0-36.0); Mean Corpuscular Volume 96.7 fL (80.0-100.0); Mean Platelet Volume 9.4 fL (9.4-12.4); Platelet Count 155 K/uL (130-400); RDW Coefficient of Variation 14.4 % (11.5-14.5); Red Blood Count 3.04 M/uL (4.70-6.10); White Blood Count 12.93 K/ul (4.8-10.8)
[2023-12-14 18:51] LABS: BUN Creatinine Ratio 29.9 (10-20); Calcium 7.6 mg/dl (8.6-10.3); Creatinine Clr Calc Pharmacy 66.8 ml/min; Est GFR (African American) 111.3 ml/min; Magnesium 2.2 mg/dl (1.7-2.4); Phosphorus 3.2 mg/dl (2.5-4.9); Potassium 3.8 mmol/L (3.5-5.1)
[2023-12-14] MEDS ORDERED: Nursing to Pharmacy Communication SCH (21:30)
[2023-12-15] MEDS: ICU Protocol for HYPERglycemia SCH ×2 (00:20→20:58)
[2023-12-15] MEDS: D5W AND NSS 1,000 ML IV SCH (00:30)
[2023-12-15] MEDS: ACETAMINOPHEN 650 MG SUPP PR PRN (00:33)
[2023-12-15 01:04] LABS: Hematocrit (blood only) 30.5 % (42.0-52.0); Mean Corpuscular Hemoglobin 31.9 pg (25.0-34.0); Mean Corpuscular Hgb Conc 32.8 g/dL (32.0-36.0); Mean Corpuscular Volume 97.4 fL (80.0-100.0); Mean Platelet Volume 9.7 fL (9.4-12.4); Platelet Count 151 K/uL (130-400); RDW Coefficient of Variation 14.2 % (11.5-14.5); Red Blood Count 3.13 M/uL (4.70-6.10); White Blood Count 11.45 K/ul (4.8-10.8)
[2023-12-15 01:18] LABS: BUN Creatinine Ratio 33.3 (10-20); Calcium 7.8 mg/dl (8.6-10.3); Creatinine Clr Calc Pharmacy 74.6 ml/min; Est GFR (African American) 116.4 ml/min; Est GFR (Non-African American) 100.5 ml/min; Magnesium 2.1 mg/dl (1.7-2.4); Phosphorus 2.7 mg/dl (2.5-4.9); Potassium 3.9 mmol/L (3.5-5.1)
[2023-12-15 04:05] LABS: iSTAT Art Bld Gas pCO2 Correct 47 mmHg (35-46); iSTAT Art Bld Gas pH Corrected 7.416 (7.35-7.45); iSTAT Arterial Blood Gas HCO3 30 meg/L (19-24); iSTAT Arterial Blood Gas pCO2 45 mmHg (35-46); iSTAT Arterial Blood Gas pH 7.43 (7.35-7.45); iSTAT Arterial Blood Gas pO2 88 mmHg (80-95); iSTAT Arterial Blood Gas pO2 C 93; iSTAT Carbon Dioxide 31 mmol/L (24-31); iSTAT FiO2 30 %; iSTAT Hematocrit 28 % (42-52); iSTAT Hemoglobin 9.5 g/dl (14.0-18.0); iSTAT Potassium 3.8 mmol/L (3.3-5.0); iSTAT Site Art Line; iSTAT Sodium 136 mmol/L (135-144)
[2023-12-15 04:21] LABS: Hematocrit (blood only) 29.9 % (42.0-52.0); Hemoglobin 9.8 g/dl (14.0-18.0); Mean Corpuscular Hemoglobin 31.6 pg (25.0-34.0); Mean Corpuscular Hgb Conc 32.8 g/dL (32.0-36.0); Mean Corpuscular Volume 96.5 fL (80.0-100.0); Mean Platelet Volume 9.8 fL (9.4-12.4); Platelet Count 147 K/uL (130-400); RDW Coefficient of Variation 14.3 % (11.5-14.5); RDW Standard Deviation 50.6 fL (36.4-46.3); White Blood Count 10.97 K/ul (4.8-10.8)
[2023-12-15 04:33] LABS: Albumin Level 2.8 gm/dl (3.4-5.0); BUN Creatinine Ratio 35.1 (10-20); Bilirubin Direct 0.1 mg/dl (0-0.2); Bilirubin,Total 0.5 mg/dl (0.2-1.0); Calcium 7.7 mg/dl (8.6-10.3); Creatinine Clr Calc Pharmacy 78.5 ml/min; Est GFR (African American) 118.9 ml/min; Est GFR (Non-African American) 102.6 ml/min; Phosphorus 2.5 mg/dl (2.5-4.9); Potassium 3.8 mmol/L (3.5-5.1); Total Protein 5.6 gm/dl (6.0-8.3)
--- NOTE | 2023-12-15 07:39 | Critical Care Progress Note ---
Date of Service December 15, 2023 Assessment & Plan (1) Cardiac arrest: (2) PEA (Pulseless electrical activity): (3) Acute on chronic hypoxic respiratory failure: (4) Interstitial lung disease: (5) Chronic hypoxic respiratory failure: (6) Severe protein-calorie malnutrition: (7) Diarrhea: Plan Reason Critically Ill: 73-year-old male presenting after outside hospital cardiac arrest. Patient with initial PEA rhythm noted upon arrival of EMS. EEG and MRI consistent with diffuse global anoxic brain injury and the patient's exam is not significantly improved but is not consistent with brain . 24-hour events: Son was updated. 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 The son would like to continue resuscitative efforts for total of 72 hours to see if the patient progresses to brain . Recommendations: NEURO -probable anoxic brain injury due to [id number] cardiac arrest and prolonged downtime with significant hypoxemia secondary to underlying lung disease. MRI and EEG reviewed. Exam currently not consistent with brain . Will continue supportive care for an additional 24 hours per family request. CARDIAC/VASCULAR -out of hospital PEA of unclear etiology although the patient was apparently found without his oxygen and profound hypoxemia given his underlying structural lung disease is certainly a possibility. He is hemodynamically stable now off pressors. Echocardiogram showed an EF of 65 to 70% without significant wall motion abnormalities or valvular dysfunction. RESPIRATORY -patient has severe pulmonary fibrosis at baseline and apparently sounds like he was maintained on pirfenidone. [facility] and we do not have PFTs or outside clinical notes available. Continue current vent settings. Peak pressures are on the high side however will tolerate this given his fibrotic lung disease. Continue bronchodilators. Patient is overbreathing the ventilator currently GI/NUTRITION -chronic diarrhea related to pirfenidone therapy. Holding for now. Will discuss with nutrition on multidisciplinary rounds initiation of tube feeding for the next 24 hours. Continue H2 diana. RENAL/LYTES -kidney function reasonable. ICU electrolyte replacement protocol including calcium repletion. Currently on D5 NS. -continue Umanzor catheter ENDO - glycemic control per protocol HEME -mild anemia. No evidence of acute blood loss. No indication for transfusion. Continue to follow currently. ID -increasing focal opacity in the right upper lung today. White count is actually decreasing. The patient initially presented hypothermic but is now demonstrated low-grade fevers of the last 24 hours. Blood cultures on admission have shown no growth to date. Will obtain respiratory cultures and initiate antibiotics for possible aspiration pneumonia. LINES/IV ACCESS - * PIVs x2 * ETT * LEFT Groin CVL * Umanzor DVT PROPHYLAXIS - * Heparin * SCDs CODE STATUS -DNR/DNI I have personally spent 40 minutes of critical care time in the direct management of this patient. This is a life/limb threatening event. This includes time spent evaluating patient, direct bedside care, chart review, placing orders, interpretation of diagnostic studies, discussion with consultants, patient, and family members, as well as other required patient management activities. This time is exclusive of all separately billable procedures, and teaching time and separate from and in addition to any other critical care service time. Will continue supportive care for an additional 24 hours and then make revisit continue life support therapy with family if the patient does not progress to brain Admission and Anticipated Discharge Date Admission Date: December 13, 2023 Subjective Patient seen and examined. EMR reviewed. The patient is intubated. No sedation currently going. No events overnight Review of Systems Review of Systems: Unobtainable due to endotracheal tube Physical Exam Constitutional: + cachectic, + frail appearing and + mec hanically ventilated Neck: trachea midline, no thyromegaly Respiratory: + tachypneic; no respiratory distress, n o labored breathing and no cough Auscultation: + crackles; no wheezes Cardiovascular: RRR, no murmur, no edema Gastrointestinal (Abdomen): normal bowel sounds, soft, nontender, no hepatosplenomegaly Musculoskeletal: Extremities: extremities normal to inspection Skin: no rashes, warm and dry Neurologic: Pupils pinpoint but reactive. Oculocephalics absent. No corneals. The patient is overbreathing the ventilator. He does demonstrate mild extensor posturing with painful stimulus to the bilateral upper extremities. Lymphatic: no cervical lymphadenopathy Results & Data Results & Data Vital Signs (Past 12 Hours) Vital Signs Temp Pulse Resp BP Pulse Ox O2 Del Method O2 Flow Rate 12/15/23 05:30 37.7 C H 96 H 35 H 97 Mechanical Vent 12/15/23 05:00 37.8 C H 99 H 29 H 125/83 97 Mechanical Vent 12/15/23 04:30 37.8 C H 102 H 35 H 97 Mechanical Vent 12/15/23 04:18 117 H 24 96 12/15/23 04:00 38.0 C H 113 H 38 H 148/98 H 95 Mechanical Vent 12/15/23 04:00 12/15/23 04:00 100 H 134/63 12/15/23 03:30 38.1 C H 99 H 37 H 96 Mechanical Vent 12/15/23 03:00 38.0 C H 102 H 24 116/73 95 Mechanical Vent 12/15/23 02:30 38.0 C H 104 H 24 96 Mechanical Vent 12/15/23 02:00 38.0 C H 104 H 24 96 Mechanical Vent 12/15/23 01:30 37.9 C H 106 H 24 96 Mechanical Vent 12/15/23 01:00 37.8 C H 109 H 24 128/76 96 Mechanical Vent 12/15/23 00:30 37.8 C H 104 H 21 98 Mechanical Vent 12/15/23 00:00 126/80 12/15/23 00:00 37.8 C H 105 H 24 98 Mechanical Vent 12/15/23 00:00 102 H 134/57 L 12/15/23 00:00 12/14/23 23:30 37.7 C H 104 H 24 97 Mechanical Vent 12/14/23 23:15 105 H 26 H 98 12/14/23 23:00 37.6 C H 105 H 24 132/81 97 Mechanical Vent 12/14/23 22:51 105 H 12/14/23 22:30 37.6 C H 105 H 24 141/62 H 97 Mechanical Vent 12/14/23 22:10 Mechanical Vent 12/14/23 22:00 37.5 C 107 H 33 H 138/84 98 Mechanical Vent 12/14/23 21:30 37.4 C 110 H 33 H 156/68 H 97 Mechanical Vent 12/14/23 21:00 37.5 C 125 H 26 H 156/64 H 97 Mechanical Vent 12/14/23 20:30 37.5 C 107 H 14 140/80 98 Mechanical Vent 12/14/23 20:00 37.5 C 99 H 24 159/70 H 97 Mechanical Vent 12/14/23 20:00 159/70 H 12/14/23 20:00 12/14/23 19:45 101 H 24 97 FiO2 12/15/23 05:30 30 12/15/23 05:00 30 12/15/23 04:30 30 12/15/23 04:18 30 12/15/23 04:00 12/15/23 04:00 12/15/23 04:00 12/15/23 03:30 12/15/23 03:00 30 12/15/23 02:30 12/15/23 02:00 30 12/15/23 01:30 12/15/23 01:00 12/15/23 00:30 12/15/23 00:00 12/15/23 00:00 12/15/23 00:00 12/15/23 00:00 12/14/23 23:30 12/14/23 23:15 12/14/23 23:00 12/14/23 22:51 12/14/23 22:30 12/14/23 22:10 12/14/23 22:00 12/14/23 21:30 12/14/23 21:00 12/14/23 20:30 12/14/23 20:00 12/14/23 20:00 12/14/23 20:00 12/14/23 19:45 30 Critical Care Results & Data Vital Signs (Past 12 Hours) Vital Signs Temp Pulse Resp BP Pulse Ox O2 Del Method O2 Flow Rate 12/15/23 05:30 37.7 C H 96 H 35 H 97 Mechanical Vent 12/15/23 05:00 37.8 C H 99 H 29 H 125/83 97 Mechanical Vent 12/15/23 04:30 37.8 C H 102 H 35 H 97 Mechanical Vent 12/15/23 04:18 117 H 24 96 12/15/23 04:00 38.0 C H 113 H 38 H 148/98 H 95 Mechanical Vent 12/15/23 04:00 12/15/23 04:00 100 H 134/63 12/15/23 03:30 38.1 C H 99 H 37 H 96 Mechanical Vent 12/15/23 03:00 38.0 C H 102 H 24 116/73 95 Mechanical Vent 12/15/23 02:30 38.0 C H 104 H 24 96 Mechanical Vent 12/15/23 02:00 38.0 C H 104 H 24 96 Mechanical Vent 12/15/23 01:30 37.9 C H 106 H 24 96 Mechanical Vent 12/15/23 01:00 37.8 C H 109 H 24 128/76 96 Mechanical Vent 12/15/23 00:30 37.8 C H 104 H 21 98 Mechanical Vent 12/15/23 00:00 126/80 12/15/23 00:00 37.8 C H 105 H 24 98 Mechanical Vent 12/15/23 00:00 102 H 134/57 L 12/15/23 00:00 12/14/23 23:30 37.7 C H 104 H 24 97 Mechanical Vent 12/14/23 23:15 105 H 26 H 98 12/14/23 23:00 37.6 C H 105 H 24 132/81 97 Mechanical Vent 12/14/23 22:51 105 H 12/14/23 22:30 37.6 C H 105 H 24 141/62 H 97 Mechanical Vent 12/14/23 22:10 Mechanical Vent 12/14/23 22:00 37.5 C 107 H 33 H 138/84 98 Mechanical Vent 12/14/23 21:30 37.4 C 110 H 33 H 156/68 H 97 Mechanical Vent 12/14/23 21:00 37.5 C 125 H 26 H 156/64 H 97 Mechanical Vent 12/14/23 20:30 37.5 C 107 H 14 140/80 98 Mechanical Vent 12/14/23 20:00 37.5 C 99 H 24 159/70 H 97 Mechanical Vent 12/14/23 20:00 159/70 H 12/14/23 20:00 12/14/23 19:45 101 H 24 97 FiO2 12/15/23 05:30 30 12/15/23 05:00 12/15/23 04:30 30 12/15/23 04:18 12/15/23 04:00 12/15/23 04:00 12/15/23 04:00 12/15/23 03:30 30 12/15/23 03:00 12/15/23 02:30 30 12/15/23 02:00 12/15/23 01:30 12/15/23 01:00 12/15/23 00:30 12/15/23 00:00 12/15/23 00:00 12/15/23 00:00 12/15/23 00:00 12/14/23 23:30 12/14/23 23:15 12/14/23 23:00 12/14/23 22:51 12/14/23 22:30 12/14/23 22:10 12/14/23 22:00 12/14/23 21:30 12/14/23 21:00 12/14/23 20:30 12/14/23 20:00 12/14/23 20:00 12/14/23 20:00 12/14/23 19:45 30 Lab & Micro Results (Past 24 Hours) RBC 3.10 M/uL (4.70-6.10) L 12/15/23 WBC 10.97 K/ul (4.8-10.8) H 12/15/23 Hgb 9.8 g/dl (14.0-18.0) L 12/15/23 Hct 29.9 % (42.0-52.0) L 12/15/23 MCV 96.5 fL (80.0-100.0) 12/15/23 MCH 31.6 pg (25.0-34.0) 12/15/23 MCHC 32.8 g/dL (32.0-36.0) 12/15/23 RDW Standard Deviation 50.6 fL (36.4-46.3) H 12/15/23 RDW Coefficient of Variation 14.3 % (11.5-14.5) 12/15/23 Plt Count 147 K/uL (130-400) 12/15/23 MPV 9.8 fL (9.4-12.4) 12/15/23 Na 136 mmol/L (136-145) 12/15/23 K 3.8 mmol/L (3.5-5.1) 12/15/23 Cl 100 mmol/L (98-107) 12/15/23 CO2 31 mmol/L (21-32) 12/15/23 Anion Gap 5 (3-11) 12/15/23 BUN 20 mg/dl (6-23) 12/15/23 Creatinine 0.57 mg/dl (0.6-1.4) L 12/15/23 Estimated GFR ( Amer) 118.9 ml/min 12/15/23 Estimated GFR (Non-Af Amer) 102.6 ml/min 12/15/23 BUN/Creatinine Ratio 35.1 (10-20) H 12/15/23 Glu 96 mg/dl (70-99(Fasting)) 12/15/23 Ca 7.7 mg/dl (8.6-10.3) L 12/15/23 Phosphorus Level 2.5 mg/dl (2.5-4.9) 12/15/23 Total Bilirubin 0.5 mg/dl (0.2-1.0) 12/15/23 Direct Bilirubin 0.1 mg/dl (0-0.2) 12/15/23 AST 84 U/L (13-39) H 12/15/23 ALT 34 U/L (7-52) 12/15/23 Alkaline Phosphatase 81 U/L (34-104) 12/15/23 TP 5.6 gm/dl (6.0-8.3) L 12/15/23 Albumin 2.8 gm/dl (3.4-5.0) L 12/15/23 Mg 2.0 mg/dl (1.7-2.4) 12/15/23 03:52 Calcium Level 7.7 mg/dl (8.6-10.3) L 12/15/23 03:52 Artemio Test NA 12/15/23 03:52 Microbiology 12/13/23 09:30 Aerobic Blood Culture - Preliminary Blood No growth in Aerobic bottle after 24 hours. Anaerobic Blood Culture - Preliminary No growth in Anaerobic bottle after 24 hours. 12/13/23 08:20 Aerobic Blood Culture - Preliminary Blood No growth in Aerobic bottle after 24 hours. Anaerobic Blood Culture - Preliminary No growth in Anaerobic bottle after 24 hours. Diagnostic Findings (Past 24 Hours) Chest X-Ray 12/14/23 06:00 XR chest 1V portable CLINICAL HISTORY: f/u TECHNIQUE: Single frontal radiograph of the chest was obtained. Comparison: Comparison is made to chest radiograph 12/13/[address] chest FINDINGS: Lines and tubes are stable. The cardiomediastinal silhouette is normal. Reticular interstitial opacities are seen. No evidence of pleural effusion or pneumothorax. IMPRESSION: Interstitial thickening is unchanged from prior exam. No new airspace opacities are seen. ACT 112: Negative or not required by law. Electronically signed by: Nigel Lyon M.D. 12/14/2023 8:05 AM I & O Totals 24 Hours 12/14/23 12/15/23 12/16/23 06:59 06:59 06:59 Intake Total 4080.405 / 4080.405 3168.671 / 3168.671 Output Total 465 / 465 1545 / 1545 Balance 3615.405 / 3615.405 1623.671 / 1623.671 Cumulative 12/13/23 07:53 thru 12/15/23 05:26 Intake Total 7249.076 Output Total 2009 Balance 5239.076 RT Ventilator Mngmt (Last Documented) Ventilator Ordered Settings Ventilator Support Mode Assist Control 12/15/23 04:18 Respiratory Rate 35 12/15/23 05:30 Ventilator Tidal Volume 400 12/15/23 04:18 Setting Minute Ventilation 13 12/15/23 04:18 Positive End Expiratory 5 12/15/23 04:18 Pressure Fraction of Inspired Oxygen 30 12/15/23 05:30 Machine Comment increased vt due to abg results 12/13/23 20:05 Ventilator - PT Measurements Respiratory Rate 35 Exhaled Tidal Volume 405 Minute Ventilation 13 Peak Inspiratory Airway 32 Pressure Plateau Pressure 29 Respiratory Cycle Inspiratory: 1:1.8 Expiratory Ratio Inspiratory Phase Time 0.6 End-Tidal CO2 32 Static Lung Compliance 16.88 Dynamic Lung Compliance 15.00 Normal Static Lung Compliance 44.00 Patient Measurements Comment Patient on peep of +5 and 30% at this time. Coding Level of Care Code 10257 CRITICAL CARE 1ST 30-74M Diagnoses Cardiac arrest I46.9 PEA (Pulseless electrical activity) I46.9 Acute on chronic hypoxic respiratory failure J96.21 Interstitial lung disease J84.9 Chronic hypoxic respiratory failure J96.11 Severe protein-calorie malnutrition E43 Diarrhea R19.7
[2023-12-15] MEDS ORDERED: VANCOMYCIN CONSULT ACTIVE PRN (07:47)
--- NOTE | 2023-12-15 07:51 | XRay Report ---
XR chest 1V portable HISTORY: Respiratory failure. COMPARISON: Chest 12/14/2023. FINDINGS: The endotracheal tube terminates 4.8 cm from the rahel. No pneumothorax. No pleural effusi on is. The heart is normal in size. Interstitial thickening again noted. This is likely chronic. No n ew airspace opacities identified. Right-sided rib fractures are better appreciated on the recent ches t CT. IMPRESSION: 1. The endotracheal tube terminates 4.8 cm from the rahel. 2. Chronic interstitial thickening persists. 3. Right-sided rib fractures are better appreciated on the recent chest CT. ACT 112: Negative or not required by law. Electronically signed by: Po Wilkerson M.D. 12/15/2023 7:49 AM
[2023-12-15] MEDS: CALCIUM CHLORIDE 10% 1,000 MG in DEXTROSE 5% 50 ML IV STA (08:16)
[2023-12-15] MEDS: PIPER/TAZO 4.5g in D5W MINI-B 100 ML IV ONE (08:16)
[2023-12-15] MEDS: VANCOMYCIN HCL 1,000 MG in SODIUM CHLORIDE 0.9% 250 ML IV ONE (08:29)
--- NOTE | 2023-12-15 09:41 | Hospitalist Progress Note ---
Date of Service December 15, 2023 Assessment & Plan (1) Cardiac arrest: Plan: Cardiac arrest in a 73 yo male with fixed pupils, lack of gag reflex, not responsive to painful stimuli. Patient with history of pulmonary fibrosis with baseline hypoxemia. Anoxic brain injury appears very likely with above signs. MRI brain also concerning for anoxic brain injury vent management per ICU team. not requiring sedation, may discussion about vent support family is wanting to try tube feeding and this was started by icu team (2) Acute on chronic hypoxic respiratory failure: Plan: Pt has bilateral changes on imaging, concern for gram negative or aspiration pneumonia , on Zosyn (3) Severe protein-calorie malnutrition: Plan: BMI is 15. , starting enteral feeding Plan outlook is poor Admission and Anticipated Discharge Date Admission Date: December 13, 2023 Subjective pt is not sedated, is breathing slightly above vent settings Critical care has discussed with family and starting Tube feeding fever and concern for gram negative pneumonia Physical Exam Physical Exam: coarse breath sounds on the right did not respond to stimuli, pin point pupils dolls eyes not present abd is without bowel sounds Results & Data Results & Data Vital Signs (Past 12 Hours) Vital Signs Temp Pulse Resp BP Pulse Ox O2 Del Method FiO2 12/15/23 09:15 99.9 F H 113 H 35 H 99 12/15/23 09:15 101 H 12/15/23 09:00 149/94 H 12/15/23 09:00 99.9 F H 111 H 36 H 98 12/15/23 08:45 99.7 F H 109 H 33 H 98 12/15/23 08:30 99.9 F H 106 H 33 H 97 12/15/23 08:15 99.9 F H 105 H 32 H 97 Mechanical Vent 12/15/23 08:00 136/84 12/15/23 08:00 99.7 F H 102 H 35 H 97 12/15/23 08:00 Mechanical Vent 12/15/23 08:00 30 12/15/23 08:00 151/70 H 12/15/23 07:45 99.7 F H 109 H 35 H 96 12/15/23 07:39 105 H 34 H 94 30 12/15/23 07:30 99.7 F H 106 H 96 12/15/23 07:15 99.7 F H 104 H 97 Mechanical Vent 12/15/23 07:00 141/86 H 12/15/23 07:00 99.7 F H 102 H 31 H 97 12/15/23 05:30 99.9 F H 96 H 35 H 97 Mechanical Vent 12/15/23 05:00 100.0 F H 99 H 29 H 125/83 97 Mechanical Vent 12/15/23 04:30 100.0 F H 102 H 35 H 97 Mechanical Vent 12/15/23 04:18 117 H 24 96 12/15/23 04:00 100.4 F H 113 H 38 H 148/98 H 95 Mechanical Vent 12/15/23 04:00 30 12/15/23 04:00 100 H 134/63 12/15/23 03:30 100.6 F H 99 H 37 H 96 Mechanical Vent 12/15/23 03:00 100.4 F H 102 H 24 116/73 95 Mechanical Vent 12/15/23 02:30 100.4 F H 104 H 24 96 Mechanical Vent 12/15/23 02:00 100.4 F H 104 H 24 96 Mechanical Vent 12/15/23 01:30 100.2 F H 106 H 24 96 Mechanical Vent 12/15/23 01:00 100.0 F H 109 H 24 128/76 96 Mechanical Vent 12/15/23 00:30 100.0 F H 104 H 21 98 Mechanical Vent 12/15/23 00:00 126/80 12/15/23 00:00 100.0 F H 105 H 24 98 Mechanical Vent 12/15/23 00:00 102 H 134/57 L 12/15/23 00:00 30 12/14/23 23:30 99.9 F H 104 H 24 97 Mechanical Vent 12/14/23 23:15 105 H 26 H 98 30 12/14/23 23:00 99.7 F H 105 H 24 132/81 97 Mechanical Vent 12/14/23 22:51 105 H 12/14/23 22:30 99.7 F H 105 H 24 141/62 H 97 Mechanical Vent 12/14/23 22:10 Mechanical Vent 12/14/23 22:00 99.5 F 107 H 33 H 138/84 98 Mechanical Vent 30 Laboratory Results review cbc review chemistry reviewed abg PG Care Time/CCT Total # of Minutes Spent Total Time Spent with Patient: Total time spent is greater than 50% in coordination of care (as documented) at patient's floor/unit and/or counseling patient: Coding Level of Care Code 28486 SUB INP/OBS CARE 235MIN Diagnoses Cardiac arrest I46.9 Acute on chronic hypoxic respiratory failure J96.21 Severe protein-calorie malnutrition E43
--- NOTE | 2023-12-15 11:17 | XRay Report ---
XR chest 1V portable CLINICAL HISTORY: OG tube placement TECHNIQUE: Single frontal radiograph of the chest was obtained. Comparison: Comparison is made to chest radiograph 12/15/2023 FINDINGS: Lines and tubes are stable. The cardiomediastinal silhouette is normal. Stable interstitial thickenin g. No evidence of pleural effusion or pneumothorax. Right rib fractures are better seen on CT. IMPRESSION: Stable exam with redemonstration of interstitial thickening. ACT 112: Negative or not required by law. Electronically signed by: Nigel Lyon M.D. 12/15/2023 11:15 AM
[2023-12-15] MEDS: TUBE FEEDING WATER FLUSH OG SCH (11:21)
[2023-12-15] MEDS: FIBERSOURCE HN 1.2 CAL 1000 ML BAG OG SCH (11:38)
--- NOTE | 2023-12-15 13:22 | Pharmacy Report ---
Pharmacy PK ABX Note - Date of Service December 15, 2023 - Assessment and Plan Assessment 73 year old M receiving empiric vancomycin/zosyn for pulmonary coverage after increasing focal opacity in the right upper lung today. Pertinent microbiologic data includes: sputum culture pending, blood cultures negative at 48 hours. Patient admitted following out of hospital PEA arrest, probable anoxic brain injury, currently intubated, with plans to continue supportive care and monitor for the next 24 hours. Plan Vancomycin * Loading dose: 1000 mg IV x 1 * Maintenance dose: 1000 mg IV every 12 hours * Regimen is predicted to achieve target AUC/ELIESER of 400-600 mg/L.hr * Will obtain random level 2/3 if continued Pharmacy will continue to follow and will adjust dose/frequency as necessary. Thank you. Pharmacy has transitioned to AUC monitoring for vancomycin. AUC/ELIESER is the preferred PK/PD target and is associated with decreased risk of nephrotoxicity compared to traditional trough targets.
[2023-12-15] MEDS: PIPERACILLIN/TAZOBACTAM 4.5 GM in DEXTROSE 5% MINI-B 100 ML IV SCH (14:40)
[2023-12-15] MEDS: VANCOMYCIN HCL 1,000 MG in SODIUM CHLORIDE 0.9% 250 ML IV SCH (15:49)
[2023-12-15] MEDS: ICU ELECTROLYTE REPLACEMENT PROTOCOL SCH (17:45)
[2023-12-15] MEDS ORDERED: Nursing to Pharmacy Communication SCH (19:00)
[2023-12-15] MEDS: ACETAMINOPHEN 1,000 MG/100 ML VIAL IV PRN (20:12)
[2023-12-16] MEDS ORDERED: STAT IV Infusion **Titration per Protocol STA (01:24)
[2023-12-16] MEDS: NOREPINEPHRINE/D5W 4 MG/250 ML IV ONE (01:45)
[2023-12-16] MEDS: NOREPINEPHRINE/D5W 4 MG/250 ML PLCT IV SCH (04:30)
[2023-12-16 05:03] LABS: Basophils # (auto) 0.01 K/uL (0.00-0.20); Basophils % (auto) 0.1 %; Eosinophils # (auto) 0.01 K/uL (0.00-0.50); Eosinophils % (auto) 0.1 %; Hematocrit (blood only) 27.9 % (42.0-52.0); Hemoglobin 9.2 g/dl (14.0-18.0); Immature Granulocytes # (auto) 0.03 K/uL (0.01-0.20); Immature Granulocytes % (auto) 0.3 %; Mean Corpuscular Hemoglobin 31.9 pg (25.0-34.0); Mean Corpuscular Volume 96.9 fL (80.0-100.0); Mean Platelet Volume 9.3 fL (9.4-12.4); Monocytes # (auto) 0.77 K/uL (0.11-0.59); Monocytes % (auto) 7.7 %; Neutrophils # (auto) 8.32 K/uL (1.40-6.50); Neutrophils % (auto) 82.8 %; Platelet Count 149 K/uL (130-400); RDW Coefficient of Variation 13.9 % (11.5-14.5); RDW Standard Deviation 49.6 fL (36.4-46.3); Red Blood Count 2.88 M/uL (4.70-6.10); White Blood Count 10.04 K/ul (4.8-10.8)
[2023-12-16 05:15] LABS: Albumin Level 2.4 gm/dl (3.4-5.0); BUN Creatinine Ratio 27.7 (10-20); Bilirubin Direct 0.1 mg/dl (0-0.2); Bilirubin,Total 0.5 mg/dl (0.2-1.0); Calcium 7.4 mg/dl (8.6-10.3); Creatinine Clr Calc Pharmacy 70.6 ml/min; Est GFR (African American) 112.7 ml/min; Est GFR (Non-African American) 97.2 ml/min; Magnesium 1.5 mg/dl (1.7-2.4); Phosphorus 1.6 mg/dl (2.5-4.9); Potassium 3.5 mmol/L (3.5-5.1); Total Protein 4.9 gm/dl (6.0-8.3)
[2023-12-16] MEDS ORDERED: SODIUM PHOSPHATE 3 MMOL/1 ML INFUSION IV STA (05:34)
[2023-12-16] MEDS: SODIUM PHOSPHATE 21 MMOL in SODIUM CHLORIDE 0.9% 500 ML IV ONE (06:02)
[2023-12-16] MEDS: MAGNESIUM SULFATE / D5W 1 GM/100 ML BAG IV SCH (06:04)
[2023-12-16] MEDS: POTASSIUM CHLORIDE / WTR 10 MEQ/100 ML PLCT IV SCH (06:04)
--- NOTE | 2023-12-16 08:07 | Critical Care Progress Note ---
Date of Service December 16, 2023 Assessment & Plan (1) Cardiac arrest: (2) PEA (Pulseless electrical activity): (3) Acute on chronic hypoxic respiratory failure: (4) Interstitial lung disease: (5) Chronic hypoxic respiratory failure: (6) Severe protein-calorie malnutrition: (7) Diarrhea: Plan Reason Critically Ill: 73-year-old male presenting after outside hospital cardiac arrest. Patient with initial PEA rhythm noted upon arrival of EMS. EEG and MRI consistent with diffuse global anoxic brain injury and the patient's exam is not significantly improved but is not consistent with brain . 24-hour events: Patient remains clinically stagnant. He is show no significant neurological improvement but his exam is not consistent with brain . Recommendations: NEURO - anoxic brain injury due to [id number] cardiac arrest and prolonged downtime with significant hypoxemia secondary to underlying lung disease. MRI and EEG reviewed. Exam currently not consistent with brain . At this p oint in time the patient is 72 hours out from initial insult and is not demonstrating any signs which would be consistent with functional neurological recovery but is also not brain . Likely state would be persistent vegetative state which the son and patient have agreed on prior discussions would not be consistent with his goals. Will plan on pursuing terminal extubation and initiation of comfort care measures later today when son is available. CARDIAC/VASCULAR -out of hospital PEA of unclear etiology although the patient was apparently found without his oxygen and profound hypoxemia given his underlying structural lung disease is certainly a possibility. He is hemodynamically stable now off pressors. Echocardiogram showed an EF of 65 to 70% without significant wall motion abnormalities or valvular dysfunction. RESPIRATORY -patient has severe pulmonary fibrosis at baseline and apparently sounds like he was maintained on pirfenidone. [facility] and we do not have PFTs or outside clinical notes available. Plan on palliative extubation later today GI/NUTRITION -chronic diarrhea related to pirfenidone therapy. Holding for now. Will discuss with nutrition on multidisciplinary rounds initiation of tube feeding for the next 24 hours. Continue H2 diana. RENAL/LYTES -kidney function reasonable. ICU electrolyte replacement protocol including calcium repletion. Currently on D5 NS. -continue Umanzor catheter ENDO - glycemic control per protocol HEME -mild anemia. No evidence of acute blood loss. No indication for transfusion. Continue to follow currently. ID -on Zosyn and vancomycin. These will be discontinued when we transition to palliative care LINES/IV ACCESS - * PIVs x2 * ETT * LEFT Groin CVL * Umanzor DVT PROPHYLAXIS - * Heparin * SCDs CODE STATUS -DNR/DNI I have personally spent 50 minutes of critical care time in the direct management of this patient. This is a life/limb threatening event. This includes time spent evaluating patient, direct bedside care, chart review, placing orders, interpretation of diagnostic studies, discussion with consultants, patient, and family members, as well as other required patient management activities. This time is exclusive of all separately billable procedures, and teaching time and separate from and in addition to any other critical care service time. Will update son later today and anticipate transition to comfort measures only with palliative extubation Admission and Anticipated Discharge Date Admission Date: December 13, 2023 Subjective Patient seen and examined. EMR reviewed. Discussed with bedside critical care nurse and on multidisciplinary rounds. Patient remains intubated off sedation. No significant meaningful recovery at this point in time Review of Systems Review of Systems: Unobtainable due to endotracheal tube Physical Exam Constitutional: + cachectic, + frail appearing and + mec hanically ventilated Neck: trachea midline, no thyromegaly Respiratory: + tachypneic; no respiratory distress, n o labored breathing and no cough Auscultation: + crackles; no wheezes Cardiovascular: RRR, no murmur, no edema Gastrointestinal (Abdomen): normal bowel sounds, soft, nontender, no hepatosplenomegaly Musculoskeletal: Extremities: extremities normal to inspection Skin: no rashes, warm and dry Neurologic: Pupils minimally reactive. He is overbreathing the ventilator. Corneal reflexes and oculocephalic reflexes are not present. Minimal withdrawal to painful stimulus. Exam not consistent with brain . Lymphatic: no cervical lymphadenopathy Results & Data Results & Data Vital Signs (Past 12 Hours) Vital Signs Temp Pulse Resp BP Pulse Ox O2 Del Method O2 Flow Rate 12/16/23 07:35 78 25 H 98 12/16/23 06:30 37.2 C 78 26 H 131/82 99 Mechanical Vent 12/16/23 06:15 37.3 C 79 28 H 129/81 97 Mechanical Vent 12/16/23 06:00 37.3 C 80 24 124/80 97 Mechanical Vent 12/16/23 05:45 37.4 C 82 24 121/77 98 Mechanical Vent 12/16/23 05:30 37.4 C 93 H 24 100 Mechanical Vent 12/16/23 05:15 37.5 C 76 24 109/71 100 Nasal CPAP 12/16/23 05:00 37.6 C H 81 24 104/68 100 Mechanical Vent 12/16/23 04:45 37.7 C H 78 24 100/68 98 Mechanical Vent 12/16/23 04:40 37.8 C H 82 24 89/57 L 100 Mechanical Vent 12/16/23 04:27 37.8 C H 94 H 24 100 Mechanical Vent 12/16/23 04:00 37.8 C H 103 H 32 H 97 Mechanical Vent 12/16/23 03:55 12/16/23 03:51 92 H 33 H 98 12/16/23 03:00 37.8 C H 112 H 35 H 96 Nasal Cannula 12/16/23 02:00 37.7 C H 95 H 33 H 139/85 97 Mechanical Vent 12/16/23 01:27 135/81 12/16/23 01:00 37.6 C H 90 28 H 128/77 98 Mechanical Vent 12/16/23 00:00 37.5 C 79 24 113/58 L 100 Mechanical Vent 12/16/23 00:00 12/15/23 23:11 84 12/15/23 23:00 37.7 C H 85 24 99 Mechanical Vent 30 12/15/23 22:54 108 H 33 H 98 12/15/23 22:49 Mechanical Vent 12/15/23 22:00 38.0 C H 110 H 29 H 97 Mechanical Vent 12/15/23 21:00 38.3 C H 98 H 33 H 98 Mechanical Vent 12/15/23 20:20 108 H 35 H 99 FiO2 12/16/23 07:35 30 12/16/23 06:30 30 12/16/23 06:15 30 12/16/23 06:00 30 12/16/23 05:45 30 12/16/23 05:30 30 12/16/23 05:15 30 12/16/23 05:00 30 12/16/23 04:45 30 12/16/23 04:40 30 12/16/23 04:27 30 12/16/23 04:00 30 12/16/23 03:55 30 12/16/23 03:51 30 12/16/23 03:00 30 12/16/23 02:00 30 12/16/23 01:27 12/16/23 01:00 30 12/16/23 00:00 30 12/16/23 00:00 30 12/15/23 23:11 12/15/23 23:00 12/15/23 22:54 30 12/15/23 22:49 30 12/15/23 22:00 30 12/15/23 21:00 30 12/15/23 20:20 30 Critical Care Results & Data Vital Signs (Past 12 Hours) Vital Signs Temp Pulse Resp BP Pulse Ox O2 Del Method O2 Flow Rate 12/16/23 07:35 78 25 H 98 12/16/23 06:30 37.2 C 78 26 H 131/82 99 Mechanical Vent 12/16/23 06:15 37.3 C 79 28 H 129/81 97 Mechanical Vent 12/16/23 06:00 37.3 C 80 24 124/80 97 Mechanical Vent 12/16/23 05:45 37.4 C 82 24 121/77 98 Mechanical Vent 12/16/23 05:30 37.4 C 93 H 24 100 Mechanical Vent 12/16/23 05:15 37.5 C 76 24 109/71 100 Nasal CPAP 12/16/23 05:00 37.6 C H 81 24 104/68 100 Mechanical Vent 12/16/23 04:45 37.7 C H 78 24 100/68 98 Mechanical Vent 12/16/23 04:40 37.8 C H 82 24 89/57 L 100 Mechanical Vent 12/16/23 04:27 37.8 C H 94 H 24 100 Mechanical Vent 12/16/23 04:00 37.8 C H 103 H 32 H 97 Mechanical Vent 12/16/23 03:55 12/16/23 03:51 92 H 33 H 98 12/16/23 03:00 37.8 C H 112 H 35 H 96 Nasal Cannula 12/16/23 02:00 37.7 C H 95 H 33 H 139/85 97 Mechanical Vent 12/16/23 01:27 135/81 12/16/23 01:00 37.6 C H 90 28 H 128/77 98 Mechanical Vent 12/16/23 00:00 37.5 C 79 24 113/58 L 100 Mechanical Vent 12/16/23 00:00 12/15/23 23:11 84 12/15/23 23:00 37.7 C H 85 24 99 Mechanical Vent 30 12/15/23 22:54 108 H 33 H 98 12/15/23 22:49 Mechanical Vent 12/15/23 22:00 38.0 C H 110 H 29 H 97 Mechanical Vent 12/15/23 21:00 38.3 C H 98 H 33 H 98 Mechanical Vent 12/15/23 20:20 108 H 35 H 99 FiO2 12/16/23 07:35 30 12/16/23 06:30 30 12/16/23 06:15 30 12/16/23 06:00 30 12/16/23 05:45 30 12/16/23 05:30 30 12/16/23 05:15 30 12/16/23 05:00 30 12/16/23 04:45 30 12/16/23 04:40 30 12/16/23 04:27 30 12/16/23 04:00 30 12/16/23 03:55 30 12/16/23 03:51 30 12/16/23 03:00 30 12/16/23 02:00 30 12/16/23 01:27 12/16/23 01:00 30 12/16/23 00:00 30 12/16/23 00:00 30 12/15/23 23:11 12/15/23 23:00 12/15/23 22:54 30 12/15/23 22:49 30 12/15/23 22:00 30 12/15/23 21:00 30 12/15/23 20:20 30 Lab & Micro Results (Past 24 Hours) RBC 2.88 M/uL (4.70-6.10) L 12/16/23 WBC 10.04 K/ul (4.8-10.8) 12/16/23 Hgb 9.2 g/dl (14.0-18.0) L 12/16/23 Hct 27.9 % (42.0-52.0) L 12/16/23 MCV 96.9 fL (80.0-100.0) 12/16/23 MCH 31.9 pg (25.0-34.0) 12/16/23 MCHC 33.0 g/dL (32.0-36.0) 12/16/23 RDW Standard Deviation 49.6 fL (36.4-46.3) H 12/16/23 RDW Coefficient of Variation 13.9 % (11.5-14.5) 12/16/23 Plt Count 149 K/uL (130-400) 12/16/23 MPV 9.3 fL (9.4-12.4) L 12/16/23 Neutrophils (%) (Auto) 82.8 % 12/16/23 Lymphocytes (%) (Auto) 9.0 % 12/16/23 Monocytes # (Auto) 0.77 K/uL (0.11-0.59) H 12/16/23 Eosinophils # (Auto) 0.01 K/uL (0.00-0.50) 12/16/23 Immature Granulocyte % (Auto) 0.3 % 12/16/23 Neutrophils # (Auto) 8.32 K/uL (1.40-6.50) H 12/16/23 Lymphocytes # (Auto) 0.90 K/uL (1.20-3.40) L 12/16/23 Monocytes # (Auto) 0.77 K/uL (0.11-0.59) H 12/16/23 Eosinophils # (Auto) 0.01 K/uL (0.00-0.50) 12/16/23 Basophils # (Auto) 0.01 K/uL (0.00-0.20) 12/16/23 Immature Granulocyte # (Auto) 0.03 K/uL (0.01-0.20) 4 Na 133 mmol/L (136-145) L 12/16/23 K 3.5 mmol/L (3.5-5.1) 12/16/23 Cl 101 mmol/L (98-107) 12/16/23 CO2 29 mmol/L (21-32) 12/16/23 Anion Gap 3 (3-11) 12/16/23 BUN 18 mg/dl (6-23) 12/16/23 Creatinine 0.65 mg/dl (0.6-1.4) 12/16/23 Estimated GFR ( Amer) 112.7 ml/min 12/16/23 Estimated GFR (Non-Af Amer) 97.2 ml/min 12/16/23 BUN/Creatinine Ratio 27.7 (10-20) H 12/16/23 Glu 131 mg/dl (70-99(Fasting)) H 12/16/23 Ca 7.4 mg/dl (8.6-10.3) L 12/16/23 Phosphorus Level 1.6 mg/dl (2.5-4.9) L 12/16/23 Total Bilirubin 0.5 mg/dl (0.2-1.0) 12/16/23 Direct Bilirubin 0.1 mg/dl (0-0.2) 12/16/23 AST 89 U/L (13-39) H 12/16/23 ALT 23 U/L (7-52) 12/16/23 Alkaline Phosphatase 78 U/L (34-104) 12/16/23 TP 4.9 gm/dl (6.0-8.3) L 12/16/23 Albumin 2.4 gm/dl (3.4-5.0) L 12/16/23 Mg 1.5 mg/dl (1.7-2.4) L 12/16/23 04:32 Calcium Level 7.4 mg/dl (8.6-10.3) L 12/16/23 04:32 Microbiology 12/15/23 10:00 Gram Stain - Final Sputum,Vent Suction 12/13/23 09:30 Aerobic Blood Culture - Preliminary Blood No growth in Aerobic bottle after 48 hours. Anaerobic Blood Culture - Preliminary No growth in Anaerobic bottle after 48 hours. 12/13/23 08:20 Aerobic Blood Culture - Preliminary Blood No growth in Aerobic bottle after 48 hours. Anaerobic Blood Culture - Preliminary No growth in Anaerobic bottle after 48 hours. Diagnostic Findings (Past 24 Hours) Chest X-Ray 12/15/23 10:51 XR chest 1V portable CLINICAL HISTORY: OG tube placement TECHNIQUE: Single frontal radiograph of the chest was obtained. Comparison: Comparison is made to chest radiograph 12/15/2023 FINDINGS: Lines and tubes are stable. The cardiomediastinal silhouette is normal. Stable interstitial thickening. No evidence of pleural effusion or pneumothorax. Right rib fractures are better seen on CT. IMPRESSION: Stable exam with redemonstration of interstitial thickening. ACT 112: Negative or not required by law. Electronically signed by: Nigel Lyon M.D. 12/15/2023 11:15 AM I & O Totals 24 Hours 12/15/23 12/16/23 12/17/23 06:59 06:59 06:59 Intake Total 3168.671 / 3168.671 4321.146 / 4321.146 266.666 / 266.666 Output Total 1545 / 1545 1485 / 1485 Balance 1623.671 / 2810.548 6691.146 / 2836.146 266.666 / 266.666 Cumulative 12/13/23 07:53 thru 12/16/23 07:57 Intake Total 19220.888 Output Total 3495 Balance 8341.888 RT Ventilator Mngmt (Last Documented) Ventilator Ordered Settings Ventilator Support Mode Assist Control 12/16/23 07:35 Respiratory Rate 25 12/16/23 07:35 Ventilator Tidal Volume 400 12/16/23 07:35 Setting Minute Ventilation 9.7 12/16/23 07:35 Positive End Expiratory 5 12/16/23 07:35 Pressure Fraction of Inspired Oxygen 30 12/16/23 07:35 Machine Comment increased vt due to abg results 12/13/23 20:05 Ventilator - PT Measurements Respiratory Rate 25 Exhaled Tidal Volume 398 Minute Ventilation 9.7 Peak Inspiratory Airway 34 Pressure Plateau Pressure 29 Respiratory Cycle Inspiratory: 1.2:1 Expiratory Ratio Inspiratory Phase Time 0.60 End-Tidal CO2 31 Static Lung Compliance 16.58 Dynamic Lung Compliance 13.72 Normal Static Lung Compliance 43.00 Patient Measurements Comment Patient on peep of +5 and 30% at this time. Coding Level of Care Code 04001 CRITICAL CARE 1ST 30-74M Diagnoses Cardiac arrest I46.9 PEA (Pulseless electrical activity) I46.9 Acute on chronic hypoxic respiratory failure J96.21 Interstitial lung disease J84.9 Chronic hypoxic respiratory failure J96.11 Severe protein-calorie malnutrition E43 Diarrhea R19.7
[2023-12-16] MEDS ORDERED: ONDANSETRON INJ 2 MG/ML 2 ML VIAL IV PRN (12:37)
[2023-12-16] MEDS: LORazepam 0.5 MG in SYRINGE 0.25 ML IV STA (12:48)
[2023-12-16] MEDS: LORazepam 0.5 MG in SYRINGE 0.25 ML IV PRN (14:08)
--- NOTE | 2023-12-16 16:08 | Discharge Summary ---
Date of Service December 16, 2023 Admission HPI Per Admitting Provider 73 yo male with a history of interstitial pulmonary disease, chronic respiratory failure, and chronic diarrhea presents to the ED after suffering a cardiac arrest. The patient is currently intubated. The chart review shows that the patient was at his baseline in regards to his health when he had diarrhea with incontinence. The son heard a thud and found the patient unresponsive on the floor. EMS was called. The patient was found to be in PEA, and was intubated on the field. Principal Diagnosis 12/16/23 at 1600 due to anoxic brain injury from respiratory arrest Discharge Exam no audible heart tones or spontaneous respirations for 30 seconds Discharge Data Allergies Allergy/AdvReac Type Severity Reaction Status Date / Time No Known Allergies Allergy Unverified 12/13/23 12:46 Consultations 12/13/23 09:03 ED Decision to Admit Stat 12/13/23 11:16 Consult Domestic Cleaner Routine Ordered Studies 12/13/23 08:56 CT head/brain wo con Stat 12/13/23 09:06 CT chest diagnostic wo con Stat 12/13/23 11:59 MRI Brain [MR brain wo/w con] Stat Hospital Course (1) Cardiac arrest: Cardiac arrest in a 73 yo male with fixed pupils, lack of gag reflex, not responsive to painful stimuli. Patient with history of pulmonary fibrosis with baseline hypoxemia. Anoxic brain injury , after no progress, compassionate extubation and pt at 1600 on 12/16/23 MRI brain also concerning for anoxic brain injury (2) Acute on chronic hypoxic respiratory failure: Pt has bilateral changes on imaging, concern for gram negative or aspiration pneumonia , was treated with Zosyn (3) Severe protein-calorie malnutrition: BMI is 15. , protein calorie malnutrition Total Time Total Time Spent Total Time Spent (In Minutes): greater than 30 minutes required for this process Discharge Plan Discharge Items Patient Disposition: Discharge Diagnosis: anoxic brain injury respiratory arrest Other Date/Time: 12/16/23 16:00 Coding Level of Care Code 38619 INP/OBS DISCH >30 MIN Diagnoses Cardiac arrest I46.9 Acute on chronic hypoxic respiratory failure J96.21 Severe protein-calorie malnutrition E43
== END 2023-12-16 18:04 | disposition expired | DRG 208 ==
LOC: ED 08:06 → SUATTDRO 10:06 → 1E 10:06